=== PATIENT | male | born 1985 | race Two or more races ===

== ENCOUNTER 2024-11-22 12:29 | Emergency (ER) | payer SELFPAY ==
--- NOTE | 2024-11-22 12:32 | ED_ITS ---
<Statement entered by Myla Pimentel DO - 11/22/24 16:02> I was consulted by the [facility], and we discussed the complexity of the problems being addressed. I approved the treatment and management plan for this patient's care in the emergency department, thus performing a substantive portion of the medical decision making. Patient just ate and drink prior to arrival, so his gallbladder is very contracted on CT and ultrasound. He does not have any sonographic Reina sign, labs are reassuring. We discussed the case with general surgery who advised outpatient follow-up. Strict return precautions given Myla Pimentel DO Discharge Plan Disposition Patient Disposition: Home, Self-Care Condition: Good Prescriptions Prescriptions: New omeprazole 40 mg capsule,delayed release(DR/EC) 40 mg PO BID Qty: 30 0RF Referrals Follow up/Referrals: Provider,MD Jace [Primary Care Provider] - See instructions Malvin Sutton MD [Staff Physician] - See instructions Activity Restrictions/Add. Instructions Additional Instructions/Restrictions: I referred you to general surgery. Dr. Cardenas was to see you in his office on Friday. Make sure to mention this to his the staff when you call to make your appointment. If you have any new or worsening signs or symptoms return to the ER as needed. Clinical Impressions Clinical Impression: Abdominal pain, epigastric Instructions Patient Instructions: DI for Acute Abdominal Pain Print Language Print Language: British Discharge ED Provider: Myla Pimentel General Adult HPI <HALEY Novoa - Last Filed: 11/22/24 14:45> General Chief complaint: Abdominal Pain Stated complaint: abd pain Time Seen by Provider: 11/22/24 12:32 History of Present Illness HPI narrative: She presents for evaluation of epigastric abdominal pain. Patient states for the last 5 nights he has been having epigastric abdominal pain that starts around 1 AM. Patient has a normal dayshift job and does not normally eat late. He does not take any [id number] medications does not drink. He states the pain is intense and last for hours. There are no aggravating or relieving factors. Is not better or worse with food intake. He denies chest pain shortness of breath hemoptysis hematochezia melena nausea vomiting or diarrhea. Patient states that he is having normal bowel and bladder function passing gas normally. Related Data Previous Rx's ?Medication ?Instructions ?Recorded omeprazole 40 mg capsule,delayed 40 mg PO BID #30 caps 11/22/24 release Allergies Allergy/AdvReac Type Severity Reaction Status Date / Time No Known Allergies Allergy Unverified 08/26/17 14:19 PFS <HALEY Novoa - Last Filed: 11/22/24 14:45> [facility] Disclaimer: The information contained in this section may have been updated after the patient was seen, as this information can be updated by other users. Medical History (Updated 11/22/24 @ 13:45 by HALEY Novoa) No significant past medical history Surgical History (Updated 11/22/24 @ 13:15 by Ann Garcia, ODILIA) No significant past surgical history Social History Smoking Status: Current every day smoker alcohol intake: never current occupational status: employed Travel in the last 8 weeks: None <HALEY Novoa - Last Filed: 11/22/24 14:45> ROS Obtained: Yes Systems reviewed as appropriate & no additional complaints except as documented Physical Exam <HALEY Novoa - Last Filed: 11/22/24 14:45> General General appearance: alert and in no apparent distress Respiratory Respiratory exam: Present normal lung sounds bilaterally Cardiovascular Cardiovascular exam: Present regular rate Neurological Exam Neurological exam: Present alert and oriented X3 Medical Decision Making <HALEY Novoa - Last Filed: 11/22/24 14:45> Medical Records Medical records reviewed: Yes I reviewed the patient's medical records. Screening: Per USPSTF and CDC recommendations, given the prevalence of disease in our region, it is our hospital?s policy to screen for HIV and viral Hepatitis for all patients aged 18 and over and those with ongoing risk factors. [place] Inquiry Pt receiving controlled substance: No Vital Signs: 11/22/24 12:41 11/22/24 13:30 11/22/24 14:00 Temperature 97.9 F Temperature Source Oral Pulse Rate 57 L 63 Pulse Rate [Left Radial] 67 Respiratory Rate 20 Blood Pressure 111/77 105/74 L Blood Pressure [Right Arm] 128/96 H Blood Pressure Mean 88 Blood Pressure Mean [Right Arm] 106 02 Sat by Pulse Oximetry 97 96 95 Oxygen Delivery Method Room Air Room Air 11/22/24 14:31 Temperature Temperature Source Pulse Rate 58 L Pulse Rate [Left Radial] Respiratory Rate Blood Pressure 118/60 Blood Pressure [Right Arm] Blood Pressure Mean Blood Pressure Mean [Right Arm] 02 Sat by Pulse Oximetry 95 Oxygen Delivery Method Room Air Lab Data Lab results reviewed: Yes I reviewed the patient's lab results. Lab Results 11/22/24 12:35: Urine Color Yellow, Urine Appearance Clear, Urine pH 5.5, Ur Specific [place] >= 1.030, Urine Protein Negative, Urine Glucose (UA) Negative, Urine Ketones Negative, Urine Blood Negative, Urine Nitrate Negative, Urine Bilirubin Negative, Urine Urobilinogen 0.2, Ur Leukocyte Esterase Negative, Urine RBC None, Urine WBC None, Ur Squamous Epith Cells Occasional 11/22/24 12:55: WBC 6.8, RBC 5.22, Hgb 16.0, Hct 46.7, MCV 89.5, MCH 30.7, MCHC 34.3, RDW 12.5, Plt Count 330, MPV 10.5 H, Neut % (Auto) 62.6, Lymph % (Auto) 26.5, Centre % (Auto) 7.2, Eos % (Auto) 2.9, Baso % (Auto) 0.4, Neut # (Auto) 4.3, Lymph # (Auto) 1.8, Centre # (Auto) 0.5, Eos # (Auto) 0.2, Baso # (Auto) 0.0, Sodium 142, Potassium 3.7, Chloride 104, Carbon Dioxide 29, Anion Gap 12.7, BUN 12, Creatinine 0.70, Estimated Creat Clear 127, Estimated GFR 126, Est GFR ( Amer) 152, Glucose 86, Calcium 9.2, Total Bilirubin 0.6, AST 35, ALT 43, Alkaline Phosphatase 78, Troponin I < 0.01, Total Protein 8.4 H, Albumin 5.1 H, Globulin 3.3 H, Albumin/Globulin Ratio 1.5, Lipase 65 11/22/24 12:55 11/22/24 12:55 Orders (Tests/Meds): ED MEDICATIONS Generic Name Dose Route Start Last Admin Trade Name Freq PRN Reason Stop Dose Admin Sodium Chloride 10 ml 11/22/24 13:03 11/22/24 13:04 Sodium Chloride 0.9% 10ml Syr (Rad Only) IV 12/22/24 13:02 10 ml NEEDED PRN Administration Maintain IV Site Discontinued Medications Generic Name Dose Route Start Last Admin Trade Name Sergio PRN Reason Stop Dose Admin Iopamidol 75 ml 11/22/24 13:03 11/22/24 13:04 Iopamidol-370 (76%);100ml Bottle IV 11/22/24 13:04 75 ml ONCE ONE Administration ORDERS Category Date Time Status CT abdomen pelvis w con Stat Cat Scan 11/22/24 12:46 Completed POCUS Point of Care (ER Only) Stat Exams 11/22/24 13:37 Completed CBC w/Auto Diff [Complete Blood Count Auto Diff] Stat Lab 11/22/24 12:55 Completed CMP [Comprehensive Metabolic Panel] Stat Lab 11/22/24 12:55 Completed Lipase Stat Lab 11/22/24 12:55 Completed Trop I [Troponin I] Stat Lab 11/22/24 12:55 Completed Troponin I Q3H Lab 11/22/24 16:00 Ordered Troponin I Q3H Lab 11/22/24 19:00 Ordered UA [Urinalysis and Microscopic] Stat Lab 11/22/24 12:35 Completed Medical Decision Narrative: In summary patient is a 39-year-old male who presents to the emergency department for evaluation of epigastric abdominal pain. Patient is hemodynamically stable upon arrival, afebrile. Physical exam is unremarkable nonfocal including normal breath sounds normal heart sounds no epigastric tenderness currently to palpation no rebound or guarding or rigidity normal bowel sounds.. Differential diagnosis includes atypical presentation of ACS versus gastritis versus esophagitis versus ulcer disease versus choledocholithiasis versus cholecystitis versus pancreatitis etc. Initial workup will be conducted with hematologic labs CT scan abdomen pelvis. Initial interventions were considered including analgesia and GI cocktail however patient is currently asymptomatic thus deferred. Initial workup reviewed by me and patient's hematologic labs are nonactionable and my informal interpretation of his CT imaging actually shows a thickened gallbladder wall with pericholecystic fluid but no obvious evidence of stones prior to radiology read. Please see their final interpretation for official results. Unfortunately patient ate 30 minutes prior to arrival in the emergency department therefore right upper quadrant ultrasound is not indicated at this time however we will order POCUS to see if we can see any stones. POCUS did not reveal any significant obstruction however he does again on POCUS have slightly thickened gallbladder wall with some pericholecystic fluid but no other acute abnormalities can be determined upon repeat evaluation remains asymptomatic and is tolerating oral intake. I then had an interactive discussion with Dr. Sutton of general surgery regarding patient presentation findings and patient management. Dr. Sutton will plan to see the patient in the outpatient setting on Friday in his office with patient started on a PPI. Patient has any new or worsening signs or symptoms he will return to the ER as needed. Given this patient is appropriate for discharge with referral to general surgery for further evaluation of his gallbladder. I have sent a prescription in for PPI to his pharmacy. <Myla Pimentel, DO - Last Filed: 11/22/24 14:34> Vital Signs: 11/22/24 12:41 11/22/24 13:30 11/22/24 14:00 Temperature 97.9 F Temperature Source Oral Pulse Rate 57 L 63 Pulse Rate [Left Radial] 67 Respiratory Rate 20 Blood Pressure 111/77 105/74 L Blood Pressure [Right Arm] 128/96 H Blood Pressure Mean 88 Blood Pressure Mean [Right Arm] 106 02 Sat by Pulse Oximetry 97 96 95 Oxygen Delivery Method Room Air Room Air 11/22/24 14:31 Temperature Temperature Source Pulse Rate 58 L Pulse Rate [Left Radial] Respiratory Rate Blood Pressure 118/60 Blood Pressure [Right Arm] Blood Pressure Mean Blood Pressure Mean [Right Arm] 02 Sat by Pulse Oximetry 95 Oxygen Delivery Method Room Air Lab Data Lab Results 11/22/24 12:35: Urine Color Yellow, Urine Appearance Clear, Urine pH 5.5, Ur Specific [place] >= 1.030, Urine Protein Negative, Urine Glucose (UA) Negative, Urine Ketones Negative, Urine Blood Negative, Urine Nitrate Negative, Urine Bilirubin Negative, Urine Urobilinogen 0.2, Ur Leukocyte Esterase Negative, Urine RBC None, Urine WBC None, Ur Squamous Epith Cells Occasional 11/22/24 12:55: WBC 6.8, RBC 5.22, Hgb 16.0, Hct 46.7, MCV 89.5, MCH 30.7, MCHC 34.3, RDW 12.5, Plt Count 330, MPV 10.5 H, Neut % (Auto) 62.6, Lymph % (Auto) 26.5, Centre % (Auto) 7.2, Eos % (Auto) 2.9, Baso % (Auto) 0.4, Neut # (Auto) 4.3, Lymph # (Auto) 1.8, Centre # (Auto) 0.5, Eos # (Auto) 0.2, Baso # (Auto) 0.0, Sodium 142, Potassium 3.7, Chloride 104, Carbon Dioxide 29, Anion Gap 12.7, BUN 12, Creatinine 0.70, Estimated Creat Clear 127, Estimated GFR 126, Est GFR ( Amer) 152, Glucose 86, Calcium 9.2, Total Bilirubin 0.6, AST 35, ALT 43, Alkaline Phosphatase 78, Troponin I < 0.01, Total Protein 8.4 H, Albumin 5.1 H, Globulin 3.3 H, Albumin/Globulin Ratio 1.5, Lipase 65 Orders (Tests/Meds): ED MEDICATIONS Generic Name Dose Route Start Last Admin Trade Name Freq PRN Reason Stop Dose Admin Sodium Chloride 10 ml 11/22/24 13:03 11/22/24 13:04 Sodium Chloride 0.9% 10ml Syr (Rad Only) IV 12/22/24 13:02 10 ml NEEDED PRN Administration Maintain IV Site Discontinued Medications Generic Name Dose Route Start Last Admin Trade Name Freq PRN Reason Stop Dose Admin Iopamidol 75 ml 11/22/24 13:03 11/22/24 13:04 Iopamidol-370 (76%);100ml Bottle IV 11/22/24 13:04 75 ml ONCE ONE Administration ORDERS Category Date Time Status CT abdomen pelvis w con Stat Cat Scan 11/22/24 12:46 Completed POCUS Point of Care (ER Only) Stat Exams 11/22/24 13:37 Completed CBC w/Auto Diff [Complete Blood Count Auto Diff] Stat Lab 11/22/24 12:55 Completed CMP [Comprehensive Metabolic Panel] Stat Lab 11/22/24 12:55 Completed Lipase Stat Lab 11/22/24 12:55 Completed Trop I [Troponin I] Stat Lab 11/22/24 12:55 Completed Troponin I Q3H Lab 11/22/24 16:00 Ordered Troponin I Q3H Lab 11/22/24 19:00 Ordered UA [Urinalysis and Microscopic] Stat Lab 11/22/24 12:35 Completed Procedures <Myla Pimentel, DO - Last Filed: 11/22/24 14:34> Limited Ultrasound Findings:: Limited RUQ ultrasound Indication: abdominal pain Identified structures: -Gallbladder -Gallbladder wall -Liver Findings: Sonographic Reina sign: absent Gallstones: absent Sludge: present Pericholecystic fluid: present Gallbladder width (cm): normal Gallbladder length (cm): normal Impression: -gallbladder wall thickening and pericholecystic fluid with biliary sludge; had eaten just prior to arrival so ddx includes gallbladder contraction vs cholecystitis. Unable to visualize CBD Images were saved to permanent archive The study was technically adequate CPT 41956-48 This study was performed by me, and I personally interpreted all images/videos. Based on my clinical judgement, these images were [adequate/inadequate] and did not necessitate further imaging. Critical Care <HALEY Novoa - Last Filed: 11/22/24 14:45> Critical Care Time Critical Care Time: No
[2024-11-22 12:41] VITALS: BP 128/96; PULSE 67; RESP 20; TEMP 36.6; O2SAT 97; BMI 24.0
[2024-11-22 12:44] LABS: Microscopic, Urine URINE MICROSCOPIC (MICROSCOPIC)
--- NOTE | 2024-11-22 12:46 | CT_ITS ---
FINAL REPORT TECHNIQUE: Axial CT images of the abdomen and pelvis were obtained after the administration of IV contrast. Coronal and sagittal reformatted images were also obtained and reviewed. This study was performed with techniques to keep radiation doses as low as reasonably achievable (ALARA). Individualized dose reduction techniques using automated exposure control or adjustment of mA and/or kV according to the patient's size were employed. CLINICAL HISTORY: Epigastric abdominal pain COMPARISON: None FINDINGS: CT ABDOMEN & PELVIS W/CONTRAST Abdomen: Lung bases are clear. The gallbladder is contracted. Liver has an unremarkable CT appearance. The spleen, pancreas and adrenal glands are unremarkable. Left renal cysts are identified. There is a tiny nonobstructing lower pole left renal stone. No bowel obstruction or fluid collection is seen. Pelvis: The appendix is unremarkable. Pelvic bowel loops are unremarkable. No fluid collection or adenopathy is seen. IMPRESSION: No acute findings. Reviewed, Interpreted and Dictated by Sarah Ugarte MD Transcribed by Brenda Adorno Authenticated and [facility]
[2024-11-22 12:56] LABS: Appearance,Urine Clear (Clear); Color,Urine Yellow (Yellow); PH,Urine 5.5 (5.0-8.5)
[2024-11-22 12:57] LABS: Bilirubin,Urine Negative (Negative); Blood, Urine Negative (Negative); Glucose,Urine (UA) Negative (Negative); Ketones,Urine Negative (Negative); Leukocyte Esterase,Urine Negative (Negative); Nitrate,Urine Negative (Negative); Protein,Urine Negative (Negative); Squamous Epithelial Cell,Urine Occasional #/hpf (0-5); Urobilinogen,Urine 0.2 EU/dl (0.2)
[2024-11-22 12:58] LABS: Specific Gravity, Urine >= 1.030 (1.005-1.030)
--- NOTE | 2024-11-22 13:00 | PC.NURSE ---
walked to ct scan with trade manager
[2024-11-22] MEDS: IOPAMIDOL-370 (76%);100ML BOTTLE 75 ML IV (13:04)
[2024-11-22] MEDS: SODIUM CHLORIDE 0.9% 10ML SYR (RAD ONLY) 10 ML IV (13:04)
[2024-11-22 13:08] LABS: Basophils % 0.4 % (0.1-2.0); Eosinophils # 0.2 K/mm3 (0.0-0.4); Eosinophils % 2.9 % (0.1-12.0); Hematocrit 46.7 % (42.0-52.0); Lymphocytes # 1.8 K/mm3 (0.7-4.5); Lymphocytes % 26.5 % (10-50); Mean Corpuscular HGB Conc 34.3 g/dL (31.8-35.4); Mean Corpuscular Hemoglobin 30.7 pg (27.0-31.2); Mean Corpuscular Volume 89.5 fl (80-94); Mean Platelet Volume 10.5 fl (7.4-10.4); Monocytes # 0.5 K/mm3 (0.1-1.0); Monocytes % 7.2 % (1.7-9.3); Neutrophils # 4.3 K/mm3 (1.8-7.8); Neutrophils % 62.6 % (37.0-80.0); Platelet Count 330 K/mm3 (142-424); Red Blood Count 5.22 M/mm3 (4.60-6.20); Red Cell Distribution Width 12.5 % (11.5-17.5); White Blood Count 6.8 K/mm3 (4.8-10.8)
[2024-11-22 13:22] LABS: Albumin Level 5.1 g/dl (3.5-5.0); Chloride 104 mmol/L (98-107); Potassium 3.7 mmoL/L (3.5-5.1); Sodium 142 mmol/L (136-145)
[2024-11-22 13:24] LABS: Blood Urea Nitrogen 12 mg/dl (9-20); Creatinine Clearance Estimated 127 mL/min (50-200); Estimated Glomerular Filt Rate 126 ml/min (>60); GFR (African American) 152 ML/MIN (>60)
[2024-11-22 13:25] LABS: Alanine Aminotransferase 43 U/L (12-78); Albumin/Globulin Ratio 1.5 (1.1-1.8); Alkaline Phosphatase 78 U/L (38-126); Anion Gap 12.7 mEq/L (5-15); Aspartate Amino Transferase 35 U/L (17-59); Bilirubin,Total 0.6 mg/dl (0.2-1.3); Calcium 9.2 mg/dl (8.4-10.2); Carbon Dioxide 29 mmol/L (22.0-30.0); Globulin 3.3 g/dL (1.3-3.2); Glucose 86 mg/dl (74-100); Lipase 65 U/L (23-300); Total Protein,Serum 8.4 g/dl (6.3-8.2)
[2024-11-22 13:30] VITALS: BP 111/77; PULSE 57; O2SAT 96
[2024-11-22 13:37] LABS: Troponin I < 0.01 ng/ml (0.00-0.034)
[2024-11-22 14:00] VITALS: BP 105/74; PULSE 63; O2SAT 95
[2024-11-22 14:31] VITALS: BP 118/60; PULSE 58; O2SAT 95
[2024-11-22 15:00] VITALS: BP 118/60; PULSE 62; RESP 18; TEMP 36.7; O2SAT 98
== END 2024-11-22 15:00 | disposition home or self-care (01) ==
PROVIDERS: Physician Assistant; Emergency Provider Emergency Medicine
DX: R10.13 Epigastric pain (principal); Z72.0 Tobacco use
CPT/HCPCS: 74177; 80053; 81001; 83690; 84484; 85025; 99285; Q9967

== ENCOUNTER 2024-11-28 19:13 | Observation (INO) | payer SELFPAY ==
[2024-11-28 19:18] VITALS: BP 143/92; PULSE 92; RESP 100; TEMP 36.7; O2SAT 100; BMI 24.0
--- NOTE | 2024-11-28 19:18 | HMH.EDGENADL ---
Discharge Plan Disposition Patient Disposition: Admitted Condition: Good Clinical Impressions Clinical Impression: Cholelithiasis Qualifiers: Cholelithiasis location: gallbladder Cholecystitis presence: without cholecystitis Discharge ED Provider: Matthew Solares General Adult HPI <HALEY Novoa - Last Filed: 11/28/24 20:29> General Chief complaint: Abdominal Pain Stated complaint: abdominal pain ,nausea Time Seen by Provider: 11/28/24 19:18 History of Present Illness HPI narrative: Patient presents for evaluation of epigastric and right upper quadrant abdominal pain. Patient was seen and evaluated on 11/22/2024 and found to have symptomatic cholelithiasis. He was ultimately able to be discharged and followed up with general surgery as an outpatient however patient has no insurance and was requested that patient make financial arrangements prior to an elective surgery. Unfortunately patient has not been able to do that and has now come back symptomatic again. He reports that he has intense pain has not gone away in the epigastrium and right upper quadrant. He reports nausea but no vomiting diarrhea fever chills hemoptysis hematochezia melena hematemesis. Related Data Previous Rx's ?Medication ?Instructions ?Recorded omeprazole 40 mg capsule,delayed 40 mg PO BID #30 caps 11/22/24 release Allergies Allergy/AdvReac Type Severity Reaction Status Date / Time No Known Allergies Allergy Unverified 11/24/24 09:00 [facility] <HALEY Novoa - Last Filed: 11/28/24 20:29> [facility] Disclaimer: The information contained in this section may have been updated after the patient was seen, as this information can be updated by other users. Medical History No significant past medical history Surgical History No significant past surgical history Social History Smoking Status: Never smoker alcohol intake: never current occupational status: employed Travel in the last 8 weeks: None Have you lived/traveled outside US in past 30 days?: No Contact w/someone who lives/traveled outside US past 30 days?: No Exposure to someone with infectious disease in past 14 days?: No Do you have a fever (greater than 100.4 F or 38 C)?: No Have you tested positive for COVID-19: No Exposed to someone with COVID-19 in past 14 days?: No Do you have a sore throat?: No Do you have a cough?: No Do you have any weakness?: No Do you have any diarrhea?: No Are you experiencing any unusual bleeding?: No Do you have any muscle aches/pain?: No Do you have any abdominal pain?: Yes Are you experiencing loss of taste or smell?: No <HALEY Novoa - Last Filed: 11/28/24 20:29> ROS Obtained: Yes Systems reviewed as appropriate & no additional complaints except as documented Physical Exam <HALEY Novoa - Last Filed: 11/28/24 20:29> General General appearance: alert and in no apparent distress Respiratory Respiratory exam: Present normal lung sounds bilaterally Cardiovascular Cardiovascular exam: Present regular rate and +S2 Neurological Exam Neurological exam: Present alert and oriented X3 Medical Decision Making <HALEY Novoa - Last Filed: 11/28/24 20:29> Medical Records Medical records reviewed: Yes I reviewed the patient's medical records. Screening: Per USPSTF and CDC recommendations, given the prevalence of disease in our region, it is our hospital?s policy to screen for HIV and viral Hepatitis for all patients aged 18 and over and those with ongoing risk factors. [place] Inquiry Pt receiving controlled substance: No Vital Signs: 11/28/24 19:18 11/28/24 20:28 Temperature 98.1 F 98.1 F Temperature Source Oral Pulse Rate 78 Pulse Rate [Right] 92 H Respiratory Rate 100 H 20 Blood Pressure 143/78 H Blood Pressure [Right Arm] 143/92 H Blood Pressure Mean [Right Arm] 109 Blood Pressure Source [Right Arm] Automatic Cuff Blood Pressure Position [Right Arm] Sitting 02 Sat by Pulse Oximetry 100 Oxygen Delivery Method Room Air Room Air Lab Data Lab results reviewed: Yes I reviewed the patient's lab results. Lab Results 11/28/24 19:36: WBC 10.2, RBC 5.45, Hgb 16.8, Hct 48.4, MCV 88.8, MCH 30.8, MCHC 34.7, RDW 12.2, Plt Count 333, MPV 10.5 H, Neut % (Auto) 63.8, Lymph % (Auto) 26.0, [place] % (Auto) 7.5, Eos % (Auto) 1.9, Baso % (Auto) 0.4, Neut # (Auto) 6.5, Lymph # (Auto) 2.7, [place] # (Auto) 0.8, Eos # (Auto) 0.2, Baso # (Auto) 0.0, Sodium 139, Potassium 4.1, Chloride 103, Carbon Dioxide 27, Anion Gap 13.1, BUN 14, Creatinine 0.70, Estimated Creat Clear 127, Estimated GFR 126, Est GFR ( Amer) 152, Glucose 91, Calcium 9.3, Total Bilirubin 0.7, AST 49, ALT 55, Alkaline Phosphatase 83, Total Protein 9.0 H, Albumin 5.4 H, Globulin 3.6 H, Albumin/Globulin Ratio 1.5, Lipase 94, Procalcitonin 0.033 11/28/24 19:55: Lactate 1.4 11/28/24 19:36 11/28/24 19:36 Orders (Tests/Meds): ED MEDICATIONS Generic Name Dose Route Start Last Admin Trade Name Freq PRN Reason Stop Dose Admin Famotidine 20 mg 11/28/24 20:25 Famotidine 20mg/2ml Vial IV 12/28/24 20:24 HS MELE Hydromorphone HCl 0.5 mg 11/28/24 20:16 Hydromorphone 2mg/Ml Syringe IV 12/28/24 20:15 Q4HP PRN Severe Pain (7-10) Sodium Chloride 1,000 mls @ 100 mls/hr 11/28/24 20:30 Sod Chlor 0.9% 1000ml Bag IV 12/28/24 20:29 .Q10H MELE Ketorolac Tromethamine 15 mg 11/28/24 20:16 Ketorolac 30mg/Ml Vial IV 12/03/24 20:15 Q4HP PRN Moderate Pain (4-6) Ondansetron HCl 4 mg 11/28/24 20:16 Ondansetron 4mg/2ml Vial IV 12/28/24 20:15 Q8HP PRN Nausea Sodium Chloride 8 ml 11/28/24 20:20 Sodium Chloride 0.9% 10ml Vial IV 12/28/24 20:19 NEEDED PRN dilute pepcid Discontinued Medications Generic Name Dose Route Start Last Admin Trade Name Sergio PRN Reason Stop Dose Admin Acetaminophen 1,000 mg 11/28/24 19:30 11/28/24 19:43 Acetaminophen 1,000mg/100ml Vial IV 11/28/24 19:31 1,000 mg ONCE ONE Administration Belladonna Alkaloids 60 ml 11/28/24 19:49 11/28/24 19:56 Belladonna Alkaloids 60 Ml Ml PO 11/28/24 19:50 60 ml ONCE ONE Administration Hydromorphone HCl 0.5 mg 11/28/24 19:50 11/28/24 19:56 Hydromorphone 2mg/Ml Syringe IV 11/28/24 19:51 0.5 mg ONCE ONE Administration Sodium Chloride 1,000 mls @ 999 mls/hr 11/28/24 19:30 11/28/24 19:43 Sod Chlor 0.9% 1000ml Bag IV 11/28/24 20:30 999 mls/hr .Q1H1M ONE Administration Ketorolac Tromethamine 15 mg 11/28/24 19:30 11/28/24 19:43 Ketorolac 30mg/Ml Vial IV 11/28/24 19:31 15 mg ONCE ONE Administration Ondansetron HCl 4 mg 11/28/24 19:30 11/28/24 19:43 Ondansetron 4mg/2ml Vial IV 11/28/24 19:31 4 mg ONCE ONE Administration ORDERS Category Date Time Status POCUS Point of Care (ER Only) Stat Exams 11/28/24 19:33 Completed CBC w/Auto Diff [Complete Blood Count Auto Diff] Stat Lab 11/28/24 19:36 Completed CMP [Comprehensive Metabolic Panel] Stat Lab 11/28/24 19:36 Completed Complete Blood Count Auto Diff AMLAB Lab 11/29/24 06:00 Ordered Comprehensive Metabolic Panel AMLAB Lab 11/29/24 06:00 Ordered Lactic Acid Stat Lab 11/28/24 19:55 Completed Lipase Stat Lab 11/28/24 19:36 Completed Magnesium AMLAB Lab 11/29/24 06:00 Ordered Procalcitonin Stat Lab 11/28/24 19:36 Completed Medical Decision Narrative: In summary patient is a 9-year-old male who presents to the emergency department for evaluation of recurrent epigastric and right upper quadrant abdominal pain. Patient is normotensive with a blood pressure 143/92 heart rate 92 respiratory rate 18 satting at 100% on room air upon arrival, afebrile at 90.1. Physical exam is remarkable for tenderness to palpation in the epigastrium and right upper quadrant without rebound or guarding or rigidity. Bowel sounds normal active.. Differential diagnosis includes cholelithiasis versus cholecystitis versus pancreatitis versus gastrointestinal cause such as ulcer [place]. Initial workup will be conducted with hematologic labs and POCUS. Initial interventions include crystalloid bolus Toradol Tylenol GI cocktail and Dilaudid. Initial workup reviewed by me and his hematologic labs are nonactionable including a normal white count with no shift no elevation of his liver enzymes or transaminitis bilirubin lipase is normal. POCUS reveals a large stone in the gallbladder wedged in the neck with no cholecystic fluid or gallbladder wall thickening. Upon repeat evaluation patient reported significant improvement after initial intervention. Given this patient is is appropriate for admission and I had interactive discussion with hospital medicine regarding patient MCCLAIN presentation and management and he will be admitted for further evaluation and care. <Matthew Solares MD - Last Filed: 11/28/24 20:46> Vital Signs: 11/28/24 19:18 11/28/24 20:28 Temperature 98.1 F 98.1 F Temperature Source Oral Pulse Rate 78 Pulse Rate [Right] 92 H Respiratory Rate 100 H 20 Blood Pressure 143/78 H Blood Pressure [Right Arm] 143/92 H Blood Pressure Mean [Right Arm] 109 Blood Pressure Source [Right Arm] Automatic Cuff Blood Pressure Position [Right Arm] Sitting 02 Sat by Pulse Oximetry 100 Oxygen Delivery Method Room Air Room Air Lab Data Lab Results 11/28/24 19:36: WBC 10.2, RBC 5.45, Hgb 16.8, Hct 48.4, MCV 88.8, MCH 30.8, MCHC 34.7, RDW 12.2, Plt Count 333, MPV 10.5 H, Neut % (Auto) 63.8, Lymph % (Auto) 26.0, [place] % (Auto) 7.5, Eos % (Auto) 1.9, Baso % (Auto) 0.4, Neut # (Auto) 6.5, Lymph # (Auto) 2.7, [place] # (Auto) 0.8, Eos # (Auto) 0.2, Baso # (Auto) 0.0, Sodium 139, Potassium 4.1, Chloride 103, Carbon Dioxide 27, Anion Gap 13.1, BUN 14, Creatinine 0.70, Estimated Creat Clear 127, Estimated GFR 126, Est GFR ( Amer) 152, Glucose 91, Calcium 9.3, Total Bilirubin 0.7, AST 49, ALT 55, Alkaline Phosphatase 83, Total Protein 9.0 H, Albumin 5.4 H, Globulin 3.6 H, Albumin/Globulin Ratio 1.5, Lipase 94, Procalcitonin 0.033 11/28/24 19:55: Lactate 1.4 Orders (Tests/Meds): ED MEDICATIONS Generic Name Dose Route Start Last Admin Trade Name Freq PRN Reason Stop Dose Admin Famotidine 20 mg 11/28/24 20:25 Famotidine 20mg/2ml Vial IV 12/28/24 20:24 HS MELE Hydromorphone HCl 0.5 mg 11/28/24 20:16 Hydromorphone 2mg/Ml Syringe IV 12/28/24 20:15 Q4HP PRN Severe Pain (7-10) Sodium Chloride 1,000 mls @ 100 mls/hr 11/28/24 20:30 Sod Chlor 0.9% 1000ml Bag IV 12/28/24 20:29 .Q10H MELE Ketorolac Tromethamine 15 mg 11/28/24 20:16 Ketorolac 30mg/Ml Vial IV 12/03/24 20:15 Q4HP PRN Moderate Pain (4-6) Ondansetron HCl 4 mg 11/28/24 20:16 Ondansetron 4mg/2ml Vial IV 12/28/24 20:15 Q8HP PRN Nausea Sodium Chloride 8 ml 11/28/24 20:20 Sodium Chloride 0.9% 10ml Vial IV 12/28/24 20:19 NEEDED PRN dilute pepcid Discontinued Medications Generic Name Dose Route Start Last Admin Trade Name Freq PRN Reason Stop Dose Admin Acetaminophen 1,000 mg 11/28/24 19:30 11/28/24 19:43 Acetaminophen 1,000mg/100ml Vial IV 11/28/24 19:31 1,000 mg ONCE ONE Administration Belladonna Alkaloids 60 ml 11/28/24 19:49 11/28/24 19:56 Belladonna Alkaloids 60 Ml Ml PO 11/28/24 19:50 60 ml ONCE ONE Administration Hydromorphone HCl 0.5 mg 11/28/24 19:50 11/28/24 19:56 Hydromorphone 2mg/Ml Syringe IV 11/28/24 19:51 0.5 mg ONCE ONE Administration Sodium Chloride 1,000 mls @ 999 mls/hr 11/28/24 19:30 11/28/24 19:43 Sod Chlor 0.9% 1000ml Bag IV 11/28/24 20:30 999 mls/hr .Q1H1M ONE Administration Ketorolac Tromethamine 15 mg 11/28/24 19:30 11/28/24 19:43 Ketorolac 30mg/Ml Vial IV 11/28/24 19:31 15 mg ONCE ONE Administration Ondansetron HCl 4 mg 11/28/24 19:30 11/28/24 19:43 Ondansetron 4mg/2ml Vial IV 11/28/24 19:31 4 mg ONCE ONE Administration ORDERS Category Date Time Status POCUS Point of Care (ER Only) Stat Exams 11/28/24 19:33 Completed CBC w/Auto Diff [Complete Blood Count Auto Diff] Stat Lab 11/28/24 19:36 Completed CMP [Comprehensive Metabolic Panel] Stat Lab 11/28/24 19:36 Completed Complete Blood Count Auto Diff AMLAB Lab 11/29/24 06:00 Ordered Comprehensive Metabolic Panel AMLAB Lab 11/29/24 06:00 Ordered Lactic Acid Stat Lab 11/28/24 19:55 Completed Lipase Stat Lab 11/28/24 19:36 Completed Magnesium AMLAB Lab 11/29/24 06:00 Ordered Procalcitonin Stat Lab 11/28/24 19:36 Completed Medical Decision Narrative: In summary patient is a 9-year-old male who presents to the emergency department for evaluation of recurrent epigastric and right upper quadrant abdominal pain. Patient is normotensive with a blood pressure 143/92 heart rate 92 respiratory rate 18 satting at 100% on room air upon arrival, afebrile at 90.1. Physical exam is remarkable for tenderness to palpation in the epigastrium and right upper quadrant without rebound or guarding or rigidity. Bowel sounds normal active.. Differential diagnosis includes cholelithiasis versus cholecystitis versus pancreatitis versus gastrointestinal cause such as ulcer [place]. Initial workup will be conducted with hematologic labs and POCUS. Initial interventions include crystalloid bolus Toradol Tylenol GI cocktail and Dilaudid. Initial workup reviewed by me and his hematologic labs are nonactionable including a normal white count with no shift no elevation of his liver enzymes or transaminitis bilirubin lipase is normal. POCUS reveals a large stone in the gallbladder wedged in the neck with no cholecystic fluid or gallbladder wall thickening. Upon repeat evaluation patient reported significant improvement after initial intervention. Given this patient is is appropriate for admission and I had interactive discussion with hospital medicine regarding patient MCCLAIN presentation and management and he will be admitted for further evaluation and care. I was consulted by the MO[place]ST[place], and we discussed the complexity of the problems being addressed. I approved the treatment and management plan for this patient's care in the Emergency Department, thus performing a substantive portion of the medical decision making. I also independently examined and interviewed patient. Consistent with acute cholecystitis, especially given right upper quadrant findings on ultrasound. Because patient high risk for clinical decompensation, deemed appropriate for inpatient admission. Results were relayed to patient who voiced understanding and patient was agreeable to inpatient admission and management. Patient was admitted to the hospital for further definitive management. Matthew Solares MD Procedures <Matthew Solares MD - Last Filed: 11/28/24 20:46> Limited Ultrasound Indication:: Limited RUQ ultrasound Indication: Right upper quadrant pain, vomiting Identified structures: -Gallbladder -Gallbladder wall -Common bile duct -Liver Findings: Sonographic Reina sign: Present Gallstones: Present, 2 cm Sludge: Present Pericholecystic fluid: Absent Maximal GB wall thickness (mm) (normal is </= 3mm): Normal Common bile duct width (mm) (normal is </= 6mm): Normal Gallbladder width (cm) (normal is < 4cm): Normal Gallbladder length (cm) (normal is < 10cm): Normal Impression: Gallbladder full of sludge with 2 cm stone. Sonographic Reina sign present. Measurements normal, no pericholecystic fluid. Consistent with acute cholecystitis Images were saved to permanent archive The study was technically adequate CPT 05235-74 This study was performed by me, and I personally interpreted all images/videos. Based on my clinical judgement, these images were adequate and did not necessitate further imaging. Critical Care <HALEY Novoa - Last Filed: 11/28/24 20:29> Critical Care Time Critical Care Time: No
[2024-11-28 19:43] LABS: Basophils % 0.4 % (0.1-2.0); Eosinophils # 0.2 K/mm3 (0.0-0.4); Eosinophils % 1.9 % (0.1-12.0); Hematocrit 48.4 % (42.0-52.0); Hemoglobin 16.8 g/dL (14.1-18.0); Lymphocytes # 2.7 K/mm3 (0.7-4.5); Mean Corpuscular HGB Conc 34.7 g/dL (31.8-35.4); Mean Corpuscular Hemoglobin 30.8 pg (27.0-31.2); Mean Corpuscular Volume 88.8 fl (80-94); Mean Platelet Volume 10.5 fl (7.4-10.4); Monocytes # 0.8 K/mm3 (0.1-1.0); Monocytes % 7.5 % (1.7-9.3); Neutrophils # 6.5 K/mm3 (1.8-7.8); Neutrophils % 63.8 % (37.0-80.0); Platelet Count 333 K/mm3 (142-424); Red Blood Count 5.45 M/mm3 (4.60-6.20); Red Cell Distribution Width 12.2 % (11.5-17.5); White Blood Count 10.2 K/mm3 (4.8-10.8)
[2024-11-28] MEDS: KETOROLAC 30MG/ML VIAL 15 MG IV ×2 (19:43→21:43)
[2024-11-28] MEDS: ACETAMINOPHEN 1,000MG/100ML VIAL 1000 MG IV (19:43)
[2024-11-28] MEDS: 0.9 % SODIUM CHLORIDE 1000ML 1,000 ML 999 ML IV (19:43)
[2024-11-28] MEDS: ONDANSETRON 4MG/2ML VIAL 4 MG IV (19:43)
[2024-11-28 19:54] LABS: Albumin Level 5.4 g/dl (3.5-5.0); Chloride 103 mmol/L (98-107); Potassium 4.1 mmoL/L (3.5-5.1); Sodium 139 mmol/L (136-145)
[2024-11-28 19:56] LABS: Blood Urea Nitrogen 14 mg/dl (9-20); Creatinine Clearance Estimated 127 mL/min (50-200); Estimated Glomerular Filt Rate 126 ml/min (>60); GFR (African American) 152 ML/MIN (>60)
[2024-11-28] MEDS: BELLADONNA ALKALOIDS 60 ML ML PO (19:56)
[2024-11-28] MEDS: HYDROMORPHONE 2MG/ML SYRINGE 0.5 MG IV ×2 (19:56→21:44)
[2024-11-28 19:57] LABS: Alanine Aminotransferase 55 U/L (12-78); Albumin/Globulin Ratio 1.5 (1.1-1.8); Alkaline Phosphatase 83 U/L (38-126); Anion Gap 13.1 mEq/L (5-15); Aspartate Amino Transferase 49 U/L (17-59); Bilirubin,Total 0.7 mg/dl (0.2-1.3); Calcium 9.3 mg/dl (8.4-10.2); Carbon Dioxide 27 mmol/L (22.0-30.0); Globulin 3.6 g/dL (1.3-3.2); Glucose 91 mg/dl (74-100); Lipase 94 U/L (23-300)
[2024-11-28 20:09] LABS: Lactic Acid 1.4 mmol/L (0.7-2.1)
--- NOTE | 2024-11-28 20:15 | PC.NURSE ---
at bedside to perform POCUS
[2024-11-28 20:20] VITALS: BP 133/80; PULSE 57; RESP 16; TEMP 36.6; O2SAT 96; BMI 25.7
[2024-11-28 20:21] LABS: Procalcitonin 0.033 ng/mL (0.0-2.0)
[2024-11-28 20:28] VITALS: BP 143/78; PULSE 78; RESP 20; TEMP 36.7; O2SAT 100
[2024-11-28] MEDS: 0.9 % SODIUM CHLORIDE 1000ML 1,000 ML 100 ML IV (20:30)
--- NOTE | 2024-11-28 20:43 | P.HP_ITS ---
<Statement entered by Krishna Gamboa MD - 11/29/24 19:28> Rounded on patient after nurse practitioner. Personally examined and interviewed patient. Agree with exam findings and care plan as documented. Eval [id number] ultrasound in the ED shows concern for gallbladder neck stone with distention and pericholecystic fluid. Surgery consulted. Patient NPO. Addressing pain with IV morphine. Monitor for toxicity. White count normal with normal liver enzymes on presentation. Repeat CBC, CMP, magnesium ordered for the morning. N.p.o. pending possible surgery. Formal right upper quadrant ultrasound pending. Review of CT from last week shows gallbladder disease but no yisel biliary duct dilatation. History of Present Illness *Admission Date: 11/28/24 *Reason for visit:: Cholelithiasis with gallstone in the neck of the gallbladder *History of present illness: Patient is a 39-year-old male. His [place] is fairly good. He does have a significant others who is fluent in both languages. Patient was seen earlier this week in the ER for same and was then evaluated in doctor's office and needed to find financing for an elective surgery.. Patient has since gotten worse come back to the emergency room. And per emergency room evaluation labs still remain good patient is in pain. Per their workup revealed a large stone in the gallbladder wedged in the neck.. [place] there was no gallbladder wall thickening or cholecystic fluid.. Patient's pain has been controlled with medication. Since this is an uncomplicated case surgery is not notified at night. But we will put in general surgery consult for the a.m. with anticipation of chol ecystectomy. Rest of patient's exam physically is normal he is alert oriented and in good spirits. Also noted that he told me he does not smoke [facility] Disclaimer: The information contained in this section may have been updated after the patient was seen, as this information can be updated by other users. Medical History No significant past medical history Surgical History No significant past surgical history Social History Smoking Status: Never smoker alcohol intake: never current occupational status: employed Travel in the last 8 weeks: None Have you lived/traveled outside US in past 30 days?: No Contact w/someone who lives/traveled outside US past 30 days?: No Exposure to someone with infectious disease in past 14 days?: No Do you have a fever (greater than 100.4 F or 38 C)?: No Have you tested positive for COVID-19: No Exposed to someone with COVID-19 in past 14 days?: No Do you have a sore throat?: No Do you have a cough?: No Do you have any weakness?: No Do you have any diarrhea?: No Are you experiencing any unusual bleeding?: No Do you have any muscle aches/pain?: No Do you have any abdominal pain?: Yes Are you experiencing loss of taste or smell?: No Other Medical History Have you received the Flu Vaccine for this season: No Have you received the Pneumonia Vaccine: No Review of Systems Review of Systems Review of systems:: pertinent systems reviewed and negative unless documented be low Constitutional Constitutional: Reports as per HPI Eyes Eyes: Reports as per HPI ENT Ears, Nose, Mouth, and Throat: Reports as per HPI *Cardiovascular Cardiovascular: Reports as per HPI *Respiratory Respiratory: Reports as per HPI *Gastrointestinal Gastrointestinal: Reports abdominal pain *Genitourinary Genitourinary: Reports as per HPI *Musculoskeletal Musculoskeletal: Reports as per HPI Integumentary/Breasts Skin/Breast: Reports as per HPI *Neurologic Neurologic: Reports as per HPI Psychiatric Psychiatric: Reports as per HPI Endocrine Endocrine: Reports as per HPI Hematologic/Lymphatic Hematologic/Lymphatic: Reports as per HPI Allergic/Immunologic Allergic/Immunologic: Reports as per HPI Meds Home Medications and Allergies Home Medications ?Medication ?Instructions ?Recorded ?Confirmed ?Type omeprazole 40 mg capsule,delayed 40 mg PO BID #30 caps 11/22/24 11/24/24 Rx release New Prescriptions to Start Prescriptions: Allergies Allergy/AdvReac Type Severity Reaction Status Date / Time No Known Allergies Allergy Unverified 11/24/24 09:00 Exam Data for Last 24 hours Vital signs and Labs for Last 24 Hours: Temp Pulse Resp BP Pulse Ox O2 Del Method 98.1 F 78 20 143/78 H 100 Room Air 11/28/24 20:28 11/28/24 20:28 11/28/24 20:28 11/28/24 20:28 11/28/24 19:18 11/28/24 20:28 Laboratory Results - last 24 hr 11/28/24 19:36: WBC 10.2, RBC 5.45, Hgb 16.8, Hct 48.4, MCV 88.8, MCH 30.8, MCHC 34.7, RDW 12.2, Plt Count 333, MPV 10.5 H, Neut % (Auto) 63.8, Lymph % (Auto) 26.0, [place] % (Auto) 7.5, Eos % (Auto) 1.9, Baso % (Auto) 0.4, Neut # (Auto) 6.5, Lymph # (Auto) 2.7, [place] # (Auto) 0.8, Eos # (Auto) 0.2, Baso # (Auto) 0.0, Sodium 139, Potassium 4.1, Chloride 103, Carbon Dioxide 27, Anion Gap 13.1, BUN 14, Creatinine 0.70, Estimated Creat Clear 127, Estimated GFR 126, Est GFR ( Amer) 152, Glucose 91, Calcium 9.3, Total Bilirubin 0.7, AST 49, ALT 55, Alkaline Phosphatase 83, Total Protein 9.0 H, Albumin 5.4 H, Globulin 3.6 H, Albumin/Globulin Ratio 1.5, Lipase 94, Procalcitonin 0.033 11/28/24 19:55: Lactate 1.4 I & O for Last 24 hours: Intake & Output 11/26/24 11/27/24 11/28/24 11/29/24 05:59 05:59 05:59 05:59 Weight 140 lb Narrative: Patient had a CT scan of the abdomen on which showed sludge throughout the gallbladder and some wall thickening. Today the patient had ultrasound done in the emergency room which showed a gallstone wedged in the neck of the gallbladder. Constitutional Constitutional: mild distress and thin Comments: Pain has been treated with medication before I saw the patient *Routine HEENT Exam Head: Present normocephalic, atraumatic and cushingoid faces Eye: Present PERRL and normal accommodation ENT: Present mucous membranes moist, oropharynx clear and external ear normal *Routine Neck Exam Neck: Present supple and full ROM *Routine Respiratory Exam Respiratory: Present CTA bilaterally, normal respiratory effort, able to speak in complete sentences and symmetric chest movement *Routine Cardiovascular Exam Cardiovascular: Present Normal S1 and Normal S2 *Routine Abdominal Exam Abdominal: Present soft and tenderness Comments: Due to the patient's diagnosis did not palpate more than a lightly to the upper right quadrant but noted tenderness when pressing *Routine Rectal Exam Rectal:: deferred *Routine Genitalia Exam Genitalia:: deferred *Routine Extremities Exam Extremities: Present full ROM *Routine Skin Exam Skin: Present intact, dry, warm and normal turgor *Routine Neurological Exam Neurological: Present alert, oriented X3, CN II-XII intact and normal speech Routine Psychiatric Exam Psychiatric: Present normal affect, normal thought process, cooperative, good insight and good judgment Comments: Very nice gentleman, 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 I spoke with Turkmen he spoke with [place] we got the practice he expressed that he truly understood what was maintained by the gallbladder surgery why the gallbladder had to come out. And that he could only have ice chips tonight H&P: Result Impressions Cholelithiasis with stone in neck of gallbladder, abdominal pain controlled at this time also gallbladder full of sludge Assessment and Plan *Assessment and plan (1) Cholelithiasis: Status: Acute Qualifiers: Cholecystitis presence: without cholecystitis Cholelithiasis location: gallbladder Biliary obstruction: with biliary obstruction Qualified Code(s): K80.21 - Calculus of gallbladder without cholecystitis with obstruction Category: Medical Code(s): K80.20 - Calculus of gallbladder without cholecystitis without obstruction (2) Abdominal pain, epigastric: Status: Acute Category: Medical Code(s): R10.13 - Epigastric pain Plan 1. Will place patient in the hospital tonight continue IV fluids pain medication as needed antinausea medication as needed. Patient will be n.p.o. but can have ice chips to keep mouth moist. Consult to general surgery to evaluate patient in a.m.
[2024-11-28] MEDS: FAMOTIDINE 20MG/2ML VIAL 20 MG IV ×2 (21:00→21:43)
[2024-11-29 04:00] VITALS: BP 100/54; PULSE 52; RESP 16; TEMP 36.6; O2SAT 97; BMI 26.3
[2024-11-29] MEDS: KETOROLAC 30MG/ML VIAL 15 MG IV ×4 (04:36→21:14)
[2024-11-29] MEDS: HYDROMORPHONE 2MG/ML SYRINGE 0.5 MG IV ×5 (04:37→21:15)
--- NOTE | 2024-11-29 05:04 | PC.NURSE ---
New Admit. V/s, ox4, significant other at bedside. Pt c/o pain, treated per NOV. NPO at midnight for possible procedure. Plan of care on going.
[2024-11-29 06:36] LABS: Basophils % 0.3 % (0.1-2.0); Eosinophils # 0.2 K/mm3 (0.0-0.4); Eosinophils % 3.8 % (0.1-12.0); Hematocrit 39.8 % (42.0-52.0); Lymphocytes # 2.1 K/mm3 (0.7-4.5); Lymphocytes % 36.5 % (10-50); Mean Corpuscular HGB Conc 33.9 g/dL (31.8-35.4); Mean Corpuscular Hemoglobin 30.6 pg (27.0-31.2); Mean Corpuscular Volume 90.2 fl (80-94); Mean Platelet Volume 10.5 fl (7.4-10.4); Monocytes # 0.5 K/mm3 (0.1-1.0); Monocytes % 9.4 % (1.7-9.3); Neutrophils # 2.8 K/mm3 (1.8-7.8); Neutrophils % 49.8 % (37.0-80.0); Platelet Count 265 K/mm3 (142-424); Red Blood Count 4.41 M/mm3 (4.60-6.20); Red Cell Distribution Width 12.1 % (11.5-17.5); White Blood Count 5.7 K/mm3 (4.8-10.8)
[2024-11-29 06:43] LABS: Alanine Aminotransferase 95 U/L (12-78); Albumin Level 3.8 g/dl (3.5-5.0); Albumin/Globulin Ratio 1.6 (1.1-1.8); Alkaline Phosphatase 55 U/L (38-126); Anion Gap 8.2 mEq/L (5-15); Aspartate Amino Transferase 106 U/L (17-59); Bilirubin,Total 0.7 mg/dl (0.2-1.3); Blood Urea Nitrogen 15 mg/dl (9-20); Calcium 8.8 mg/dl (8.4-10.2); Carbon Dioxide 28 mmol/L (22.0-30.0); Chloride 107 mmol/L (98-107); Creatinine Clearance Estimated 123 mL/min (50-200); Estimated Glomerular Filt Rate 108 ml/min (>60); GFR (African American) 130 ML/MIN (>60); Globulin 2.4 g/dL (1.3-3.2); Glucose 87 mg/dl (74-100); Magnesium 2.3 mg/dl (1.6-2.3); Potassium 4.2 mmoL/L (3.5-5.1); Sodium 139 mmol/L (136-145); Total Protein,Serum 6.2 g/dl (6.3-8.2)
[2024-11-29] MEDS: 0.9 % SODIUM CHLORIDE 1000ML 1,000 ML 100 ML IV ×2 (06:51→09:16)
[2024-11-29 06:55] LABS: Hemoglobin 13.5 g/dL (14.1-18.0)
--- NOTE | 2024-11-29 06:58 | EXP.EVENT.NO ---
Problem nurse from floor just notified me that the patient had gotten up to urinate and that the patient's pain had increased. He had received pain medicine a little more than an hour ago. In reviewing labs patient's liver functions are now up., I have asked the nurse to notify surgery of this change and that the patient notify them the patient is having increased pain despite pain medication
--- NOTE | 2024-11-29 07:09 | US_ITS ---
FINAL REPORT TECHNIQUE: Sonographic images of the right upper quadrant were obtained. CLINICAL HISTORY: cholelithiasis FINDINGS: PANCREAS: Unremarkable. LIVER: Homogeneous. No focal hepatic lesion. Portal vein patent with normal directional flow. GALLBLADDER: Large gallstone in the region of the neck of the gallbladder. Gallbladder otherwise filled with sludge. Mild gallbladder wall thickening. No pericholecystic fluid. COMMON DUCT: Dilated to 10 mm. RIGHT KIDNEY: The right kidney measures 9.4 cm. There is no hydronephrosis, mass, or stone. FREE FLUID: None. IMPRESSION: Sludge and stone filled gallbladder with gallbladder wall thickening and common duct dilation. Cholecystitis and common duct stone cannot be excluded. Consider MRCP. Reviewed, Interpreted and Dictated by Kenyatta Marrero MD Transcribed by Klyie Erwin Authenticated and [facility]
[2024-11-29 08:00] VITALS: BP 107/70; PULSE 56; RESP 16; TEMP 36.6; O2SAT 95
--- NOTE | 2024-11-29 10:21 | EXP.SURG.CON ---
History of Present Illness *Admission Date: 11/28/24 *Reason for visit:: Gallstones *History of present illness: Patient is a 39-year-old male. He was seen in the emergency department about 1 week ago at which time he had presented with symptoms consistent with biliary colic. He was found to have gallstones. He had seen Dr. Sutton on 11/24/2024 and consideration is being given for arrangements for outpatient surgery. However he had recurrent symptoms and presented back to the emergency department overnight. He was admitted for inpatient management. He describes pain in the right upper quadrant with radiation to the epigastrium. He has had several attacks over several months occurring about once per week. However it has become progressively more severe necessitating him to ER visits in the past week. He has been given pain medication which has given him some relief but the pain persists. [facility] Disclaimer: The information contained in this section may have been updated after the patient was seen, as this information can be updated by other users. Medical History No significant past medical history Surgical History No significant past surgical history Social History Smoking Status: Never smoker alcohol intake: never current occupational status: employed Travel in the last 8 weeks: None Have you lived/traveled outside US in past 30 days?: No Contact w/someone who lives/traveled outside US past 30 days?: No Exposure to someone with infectious disease in past 14 days?: No Do you have a fever (greater than 100.4 F or 38 C)?: No Have you tested positive for COVID-19: No Exposed to someone with COVID-19 in past 14 days?: No Do you have a sore throat?: No Do you have a cough?: No Do you have any weakness?: No Do you have any diarrhea?: No Are you experiencing any unusual bleeding?: No Do you have any muscle aches/pain?: No Do you have any abdominal pain?: Yes Are you experiencing loss of taste or smell?: No Review of Systems *Neurologic Neurologic: Reports as per [facility] Meds Home Medications and Allergies Home Medications ?Medication ?Instructions ?Recorded ?Confirmed ?Type omeprazole 40 mg capsule,delayed 40 mg PO BID #30 caps 11/22/24 11/28/24 Rx release New Prescriptions to Start Prescriptions: Allergies Allergy/AdvReac Type Severity Reaction Status Date / Time No Known Allergies Allergy Unverified 11/24/24 09:00 Exam (Inpt) Vital signs and Labs for Last 24 Hours: Temp Pulse Resp BP Pulse Ox O2 Del Method 97.8 F 56 L 16 107/70 L 95 Room Air 11/29/24 08:00 11/29/24 08:00 11/29/24 08:00 11/29/24 08:00 11/29/24 08:00 11/29/24 09:00 Laboratory Results - last 24 hr 11/28/24 19:36: WBC 10.2, RBC 5.45, Hgb 16.8, Hct 48.4, MCV 88.8, MCH 30.8, MCHC 34.7, RDW 12.2, Plt Count 333, MPV 10.5 H, Neut % (Auto) 63.8, Lymph % (Auto) 26.0, [place] % (Auto) 7.5, Eos % (Auto) 1.9, Baso % (Auto) 0.4, Neut # (Auto) 6.5, Lymph # (Auto) 2.7, [place] # (Auto) 0.8, Eos # (Auto) 0.2, Baso # (Auto) 0.0, Sodium 139, Potassium 4.1, Chloride 103, Carbon Dioxide 27, Anion Gap 13.1, BUN 14, Creatinine 0.70, Estimated Creat Clear 127, Estimated GFR 126, Est GFR ( Amer) 152, Glucose 91, Calcium 9.3, Total Bilirubin 0.7, AST 49, ALT 55, Alkaline Phosphatase 83, Total Protein 9.0 H, Albumin 5.4 H, Globulin 3.6 H, Albumin/Globulin Ratio 1.5, Lipase 94, Procalcitonin 0.033 11/28/24 19:55: Lactate 1.4 11/29/24 05:54: WBC 5.7 D, RBC 4.41 L, Hgb 13.5 L D, Hct 39.8 L, MCV 90.2, MCH 30.6, MCHC 33.9, RDW 12.1, Plt Count 265, MPV 10.5 H, Neut % (Auto) 49.8, Lymph % (Auto) 36.5, [place] % (Auto) 9.4 H, Eos % (Auto) 3.8, Baso % (Auto) 0.3, Neut # (Auto) 2.8, Lymph # (Auto) 2.1, [place] # (Auto) 0.5, Eos # (Auto) 0.2, Baso # (Auto) 0.0, Sodium 139, Potassium 4.2, Chloride 107, Carbon Dioxide 28, Anion Gap 8.2, BUN 15, Creatinine 0.80, Estimated Creat Clear 123, Estimated GFR 108, Est GFR ( Amer) 130, Glucose 87, Calcium 8.8, Magnesium 2.3, Total Bilirubin 0.7, AST 106 H D, ALT 95 H D, Alkaline Phosphatase 55, Total Protein 6.2 L D, Albumin 3.8 D, Globulin 2.4, Albumin/Globulin Ratio 1.6 I & O for Labs for Last 24 Hours: Intake & Output 11/26/24 11/27/24 11/28/24 11/29/24 11:59 11:59 11:59 11:59 Output Total 0 / 0 Balance 0 / 0 Weight 154 lb 3.2 oz Constitutional: no acute distress Comments:: Abdomen is soft. He has tenderness with voluntary guarding in the right upper quadrant. Results Labs 11/29/24 05:54 11/29/24 05:54 Labs: Laboratory Results - last 24 hr 11/28/24 19:36: WBC 10.2, RBC 5.45, Hgb 16.8, Hct 48.4, MCV 88.8, MCH 30.8, MCHC 34.7, RDW 12.2, Plt Count 333, MPV 10.5 H, Neut % (Auto) 63.8, Lymph % (Auto) 26.0, [place] % (Auto) 7.5, Eos % (Auto) 1.9, Baso % (Auto) 0.4, Neut # (Auto) 6.5, Lymph # (Auto) 2.7, [place] # (Auto) 0.8, Eos # (Auto) 0.2, Baso # (Auto) 0.0, Sodium 139, Potassium 4.1, Chloride 103, Carbon Dioxide 27, Anion Gap 13.1, BUN 14, Creatinine 0.70, Estimated Creat Clear 127, Estimated GFR 126, Est GFR ( Amer) 152, Glucose 91, Calcium 9.3, Total Bilirubin 0.7, AST 49, ALT 55, Alkaline Phosphatase 83, Total Protein 9.0 H, Albumin 5.4 H, Globulin 3.6 H, Albumin/Globulin Ratio 1.5, Lipase 94, Procalcitonin 0.033 11/28/24 19:55: Lactate 1.4 11/29/24 05:54: WBC 5.7 D, RBC 4.41 L, Hgb 13.5 L D, Hct 39.8 L, MCV 90.2, MCH 30.6, MCHC 33.9, RDW 12.1, Plt Count 265, MPV 10.5 H, Neut % (Auto) 49.8, Lymph % (Auto) 36.5, [place] % (Auto) 9.4 H, Eos % (Auto) 3.8, Baso % (Auto) 0.3, Neut # (Auto) 2.8, Lymph # (Auto) 2.1, [place] # (Auto) 0.5, Eos # (Auto) 0.2, Baso # (Auto) 0.0, Sodium 139, Potassium 4.2, Chloride 107, Carbon Dioxide 28, Anion Gap 8.2, BUN 15, Creatinine 0.80, Estimated Creat Clear 123, Estimated GFR 108, Est GFR ( Amer) 130, Glucose 87, Calcium 8.8, Magnesium 2.3, Total Bilirubin 0.7, AST 106 H D, ALT 95 H D, Alkaline Phosphatase 55, Total Protein 6.2 L D, Albumin 3.8 D, Globulin 2.4, Albumin/Globulin Ratio 1.6 Assessment and Plan *Assessment and plan (1) Cholelithiasis: Status: Acute Qualifiers: Biliary obstruction: with biliary obstruction Cholecystitis presence: without cholecystitis Cholelithiasis location: gallbladder Qualified Code(s): K80.21 - Calculus of gallbladder without cholecystitis with obstruction Category: Medical Code(s): K80.20 - Calculus of gallbladder without cholecystitis without obstruction Plan Patient has findings likely consistent with clinical acute cholecystitis. Awaiting official gallbladder ultrasound to assess for findings of acute cholecystitis and assess for ductal dilatation. Pending ultrasound may proceed with cholecystectomy. However if there is some evidence of common duct stone on ultrasound may need continued inpatient observation for potential ERCP primarily.
[2024-11-29] MEDS: PIPERCILLIN/TAZO 3.375 GM in 0.9 % SODIUM CHLORIDE 50 ML IV ×2 (15:06→21:14)
[2024-11-29 16:00] VITALS: BP 97/55; PULSE 49; RESP 16; TEMP 36.6; O2SAT 98
--- NOTE | 2024-11-29 18:06 | PC.NURSE ---
pt has c/o pain frequently t/o shift to RUQ, relieved by MAR each time. family has been at bs. so far tolerating clear liquid diet. no concerns or needs at this time
--- NOTE | 2024-11-29 19:06 | P.PN_ITS ---
Subjective *Date: 11/29/24 *Time: 22:00 Interval history: Complaining of pain this morning. Pain in right upper quadrant. Response to opiates. Denies fever, chest pain, shortness of breath. Mild nausea: He has pain. No yisel emesis. Alert and oriented x 4 Medical Exam Vital signs and Labs for Last 24 Hours: Vital Signs Temp Pulse Pulse Resp BP BP Pulse Ox 11/29/24 17:00 11/29/24 16:00 97.9 F 49 L 16 97/55 L 98 11/29/24 15:00 11/29/24 13:00 11/29/24 11:00 11/29/24 09:00 11/29/24 08:00 11/29/24 08:00 97.8 F 56 L 16 107/70 L 95 11/29/24 06:29 11/29/24 04:51 11/29/24 04:00 97.9 F 52 L 16 100/54 L 97 11/29/24 03:00 11/29/24 01:00 11/28/24 23:00 11/28/24 21:00 11/28/24 20:36 11/28/24 20:28 98.1 F 78 20 143/78 H 11/28/24 20:20 97.9 F 57 L 16 133/80 96 11/28/24 19:18 98.1 F 92 H 100 H 143/92 H 100 O2 Del Method 11/29/24 17:00 Room Air 11/29/24 16:00 Room Air 11/29/24 15:00 Room Air 11/29/24 13:00 Room Air 11/29/24 11:00 Room Air 11/29/24 09:00 Room Air 11/29/24 08:00 Room Air 11/29/24 08:00 Room Air 11/29/24 06:29 Room Air 11/29/24 04:51 Room Air 11/29/24 04:00 Room Air 11/29/24 03:00 Room Air 11/29/24 01:00 Room Air 11/28/24 23:00 Room Air 11/28/24 21:00 Room Air 11/28/24 20:36 Room Air 11/28/24 20:28 Room Air 11/28/24 20:20 Room Air 11/28/24 19:18 Room Air Intake and Output 11/29/24 11/29/24 11/29/24 07:59 15:59 23:59 Intake Total / Output Total 0 / 0 Balance 0 360 / Intake: Intake, Oral Amount Output: Output, Urine Amount 0 / 0 Other: Number of Unmeasured Voids 1 Weight 69.944 kg Patient Weight 11/29/24 23:59 Weight 69.944 kg Laboratory Results - last 24 hr 11/28/24 19:36: WBC 10.2, RBC 5.45, Hgb 16.8, Hct 48.4, MCV 88.8, MCH 30.8, MCHC 34.7, RDW 12.2, Plt Count 333, MPV 10.5 H, Neut % (Auto) 63.8, Lymph % (Auto) 26.0, [place] % (Auto) 7.5, Eos % (Auto) 1.9, Baso % (Auto) 0.4, Neut # (Auto) 6.5, Lymph # (Auto) 2.7, [place] # (Auto) 0.8, Eos # (Auto) 0.2, Baso # (Auto) 0.0, Sodium 139, Potassium 4.1, Chloride 103, Carbon Dioxide 27, Anion Gap 13.1, BUN 14, Creatinine 0.70, Estimated Creat Clear 127, Estimated GFR 126, Est GFR ( Amer) 152, Glucose 91, Calcium 9.3, Total Bilirubin 0.7, AST 49, ALT 55, Alkaline Phosphatase 83, Total Protein 9.0 H, Albumin 5.4 H, Globulin 3.6 H, Albumin/Globulin Ratio 1.5, Lipase 94, Procalcitonin 0.033 11/28/24 19:55: Lactate 1.4 11/29/24 05:54: WBC 5.7 D, RBC 4.41 L, Hgb 13.5 L D, Hct 39.8 L, MCV 90.2, MCH 30.6, MCHC 33.9, RDW 12.1, Plt Count 265, MPV 10.5 H, Neut % (Auto) 49.8, Lymph % (Auto) 36.5, [place] % (Auto) 9.4 H, Eos % (Auto) 3.8, Baso % (Auto) 0.3, Neut # (Auto) 2.8, Lymph # (Auto) 2.1, [place] # (Auto) 0.5, Eos # (Auto) 0.2, Baso # (Auto) 0.0, Sodium 139, Potassium 4.2, Chloride 107, Carbon Dioxide 28, Anion Gap 8.2, BUN 15, Creatinine 0.80, Estimated Creat Clear 123, Estimated GFR 108, Est GFR ( Amer) 130, Glucose 87, Calcium 8.8, Magnesium 2.3, Total Bilirubin 0.7, AST 106 H D, ALT 95 H D, Alkaline Phosphatase 55, Total Protein 6.2 L D, Albumin 3.8 D, Globulin 2.4, Albumin/Globulin Ratio 1.6 I & O for Labs for Last 24 Hours: Intake & Output 11/26/24 11/27/24 11/28/24 11/29/24 23:59 23:59 23:59 23:59 Intake Total 360 / 360 Output Total 0 / 0 Balance 360 / 360 Weight 68.266 kg 69.944 kg Constitutional: Present no acute distress, average body habitus and cooperative Head: Present atraumatic and normocephalic ENT: Present normal exam Respiratory: Present normal respiratory effort; Absent rhonchi, wheezes or crackles Cardiac: Present Reg Rate and Rhythm GI: Present soft, tenderness (Right upper quadrant, positive Reina sign) and normal bowel sounds; Absent distention Extremities: Present normal inspection and full ROM Skin: Present intact; Absent erythema Neuro: Present Grossly Intact, alert, awake, oriented x 3 and moves all extremities Assessment and Plan *Assessment and plan (1) Cholelithiasis: Status: Acute Qualifiers: Biliary obstruction: with biliary obstruction Cholecystitis presence: without cholecystitis Cholelithiasis location: gallbladder Qualified Code(s): K80.21 - Calculus of gallbladder without cholecystitis with obstruction Category: Medical Code(s): K80.20 - Calculus of gallbladder without cholecystitis without obstruction (2) Abdominal pain, epigastric: Status: Acute Category: Medical Code(s): R10.13 - Epigastric pain Plan 39-year-old male with concern for cholecystitis. Admitted to medicine for further management. Surgery evaluating today. Obtaining right upper quadrant ultrasound. Discussed case with surgery, recommend serial labs and exam given slight elevation in liver enzymes this morning. Bilirubin 0.7, AST 106, ALT 95, alk phos 55. Reviewed CT from last week that shows cholecystitis. Repeat ultrasound obtained today showing pericholecystic fluid and gallstones. Per my review. Has enlarged CBD at 10 mm. Will repeat CMP this evening to monitor for LFT trend. If LFTs increasing, will consult GI in the morning for possible ERCP. If trending down are stable, surgery recommending proceeding with cholecystectomy. White count normal at 5.7. Initiating on Zosyn 3.375 g every 6 hours for medical management. Kidney function normal BUN 15, creatinine 0.8. Repeat CBC, CMP, magnesium ordered for the morning. NPO. Pain control regimen with Toradol 15 mg every 6 hours as needed for moderate to severe pain. Morphine IV available. Monitoring for toxicity. NPO. Reevaluate in the morning.
[2024-11-29 19:47] LABS: Albumin Level 3.9 g/dl (3.5-5.0); Chloride 107 mmol/L (98-107); Potassium 4.1 mmoL/L (3.5-5.1); Sodium 137 mmol/L (136-145)
[2024-11-29 19:50] LABS: Alanine Aminotransferase 82 U/L (12-78); Albumin/Globulin Ratio 1.6 (1.1-1.8); Alkaline Phosphatase 68 U/L (38-126); Anion Gap 6.1 mEq/L (5-15); Aspartate Amino Transferase 67 U/L (17-59); Bilirubin,Total 0.8 mg/dl (0.2-1.3); Blood Urea Nitrogen 12 mg/dl (9-20); Carbon Dioxide 28 mmol/L (22.0-30.0); Creatinine Clearance Estimated 123 mL/min (50-200); Estimated Glomerular Filt Rate 108 ml/min (>60); GFR (African American) 130 ML/MIN (>60); Globulin 2.4 g/dL (1.3-3.2); Total Protein,Serum 6.3 g/dl (6.3-8.2)
[2024-11-29 19:51] LABS: Calcium 8.2 mg/dl (8.4-10.2); Glucose 97 mg/dl (74-100)
[2024-11-29 20:00] VITALS: BP 106/64; PULSE 50; RESP 14; TEMP 36.6; O2SAT 97
[2024-11-29] MEDS: FAMOTIDINE 20MG/2ML VIAL 20 MG IV (21:14)
[2024-11-30] VITALS (23 sets, daily range): BP systolic 99–136; BP diastolic 61–85; PULSE 52–78; RESP 14–20; TEMP 36.5–38; O2SAT 96–99; BMI 26.3
[2024-11-30] MEDS: PIPERCILLIN/TAZO 3.375 GM in 0.9 % SODIUM CHLORIDE 50 ML IV ×4 (03:19→21:12)
[2024-11-30] MEDS: KETOROLAC 30MG/ML VIAL 15 MG IV ×2 (04:22→15:29)
[2024-11-30] MEDS: HYDROMORPHONE 2MG/ML SYRINGE 0.5 MG IV ×4 (04:23→18:50)
--- NOTE | 2024-11-30 05:17 | PC.NURSE ---
v/s, ox4. Pt c/o pain, treated per NOV. at bedside. NPO at midnight. Plan of care ongoing.
[2024-11-30] MEDS: 0.9 % SODIUM CHLORIDE 1000ML 1,000 ML 75 ML IV ×3 (05:58→19:15)
[2024-11-30 06:33] LABS: Basophils % 0.3 % (0.1-2.0); Eosinophils # 0.4 K/mm3 (0.0-0.4); Eosinophils % 5.7 % (0.1-12.0); Hematocrit 37.2 % (42.0-52.0); Hemoglobin 12.8 g/dL (14.1-18.0); Lymphocytes # 1.9 K/mm3 (0.7-4.5); Lymphocytes % 31.3 % (10-50); Mean Corpuscular HGB Conc 34.4 g/dL (31.8-35.4); Mean Corpuscular Hemoglobin 31.4 pg (27.0-31.2); Mean Corpuscular Volume 91.2 fl (80-94); Mean Platelet Volume 10.9 fl (7.4-10.4); Monocytes # 0.5 K/mm3 (0.1-1.0); Monocytes % 8.8 % (1.7-9.3); Neutrophils # 3.3 K/mm3 (1.8-7.8); Neutrophils % 53.7 % (37.0-80.0); Platelet Count 254 K/mm3 (142-424); Red Blood Count 4.08 M/mm3 (4.60-6.20); Red Cell Distribution Width 12.3 % (11.5-17.5); White Blood Count 6.1 K/mm3 (4.8-10.8)
[2024-11-30 06:37] LABS: Alanine Aminotransferase 67 U/L (12-78); Albumin Level 3.6 g/dl (3.5-5.0); Albumin/Globulin Ratio 1.6 (1.1-1.8); Alkaline Phosphatase 60 U/L (38-126); Aspartate Amino Transferase 44 U/L (17-59); Bilirubin,Total 0.8 mg/dl (0.2-1.3); Blood Urea Nitrogen 9 mg/dl (9-20); Calcium 8.3 mg/dl (8.4-10.2); Carbon Dioxide 26 mmol/L (22.0-30.0); Chloride 110 mmol/L (98-107); Creatinine Clearance Estimated 123 mL/min (50-200); Estimated Glomerular Filt Rate 108 ml/min (>60); GFR (African American) 130 ML/MIN (>60); Globulin 2.3 g/dL (1.3-3.2); Glucose 97 mg/dl (74-100); Magnesium 2.3 mg/dl (1.6-2.3); Sodium 139 mmol/L (136-145); Total Protein,Serum 5.9 g/dl (6.3-8.2)
--- NOTE | 2024-11-30 06:51 | P.PN_ITS ---
Subjective Narrative: Patient still with some pain. Exam Data for Last 24 hours Vital signs and Labs for Last 24 Hours: Temp Pulse Resp BP Pulse Ox O2 Del Method 98.0 F 53 L 14 99/63 L 96 Room Air 11/30/24 04:00 11/30/24 04:00 11/30/24 04:00 11/30/24 04:00 11/30/24 04:00 11/30/24 06:03 Laboratory Results - last 24 hr 11/29/24 05:54: WBC 5.7 D, RBC 4.41 L, Hgb 13.5 L D, Hct 39.8 L, MCV 90.2, MCH 30.6, MCHC 33.9, RDW 12.1, Plt Count 265, MPV 10.5 H, Neut % (Auto) 49.8, Lymph % (Auto) 36.5, [place] % (Auto) 9.4 H, Eos % (Auto) 3.8, Baso % (Auto) 0.3, Neut # (Auto) 2.8, Lymph # (Auto) 2.1, [place] # (Auto) 0.5, Eos # (Auto) 0.2, Baso # (Auto) 0.0 11/29/24 19:28: Sodium 137, Potassium 4.1, Chloride 107, Carbon Dioxide 28, Anion Gap 6.1, BUN 12, Creatinine 0.80, Estimated Creat Clear 123, Estimated GFR 108, Est GFR ( Amer) 130, Glucose 97, Calcium 8.2 L, Total Bilirubin 0.8, AST 67 H D, ALT 82 H, Alkaline Phosphatase 68, Total Protein 6.3, Albumin 3.9, Globulin 2.4, Albumin/Globulin Ratio 1.6 11/30/24 05:35: WBC 6.1, RBC 4.08 L, Hgb 12.8 L, Hct 37.2 L, MCV 91.2, MCH 31.4 H, MCHC 34.4, RDW 12.3, Plt Count 254, MPV 10.9 H, Neut % (Auto) 53.7, Lymph % (Auto) 31.3, [place] % (Auto) 8.8, Eos % (Auto) 5.7, Baso % (Auto) 0.3, Neut # (Auto) 3.3, Lymph # (Auto) 1.9, [place] # (Auto) 0.5, Eos # (Auto) 0.4, Baso # (Auto) 0.0, Sodium 139, Potassium 4.0, Chloride 110 H, Carbon Dioxide 26, Anion Gap 7.0, BUN 9, Creatinine 0.80, Estimated Creat Clear 123, Estimated GFR 108, Est GFR ( Amer) 130, Glucose 97, Calcium 8.3 L, Magnesium 2.3, Total Bilirubin 0.8, AST 44 D, ALT 67, Alkaline Phosphatase 60, Total Protein 5.9 L, Albumin 3.6, Globulin 2.3, Albumin/Globulin Ratio 1.6 I & O for Last 24 hours: Intake & Output 11/27/24 11/28/24 11/29/24 11/30/24 11:59 11:59 11:59 11:59 Intake Total 360 / 360 Output Total 0 / 0 Balance 0 / 0 360 / 360 Weight 154 lb 3.2 oz 154 lb 3.202 oz *Routine Abdominal Exam Abdominal: Present soft and tenderness Progress Note: A&P Assessment and plan (1) Cholelithiasis: Status: Acute Assessment and plan: LFTs have shown some slight improvement. Low to moderate possibility of choledocholithiasis. Plan for laparoscopic possibly open cholecystectomy with possible intraoperative cholangiogram today. (2) Abdominal pain, epigastric: Status: Acute
--- NOTE | 2024-11-30 11:43 | EXP.ANES.CKL ---
[facility] Disclaimer: The information contained in this section may have been updated after the patient was seen, as this information can be updated by other users. Medical History No significant past medical history Surgical History No significant past surgical history Social History Smoking Status: Never smoker alcohol intake: never substance use type: denies use current occupational status: employed Travel in the last 8 weeks: None [facility] Anesthesia Checklist Patient Identification Patient Identification: Arm Band and Verbal (Name & ) Structural Data Admitted From: Inpatient Planned Operative Procedure/s: Lap denys Consent for Planned Operative Procedure(s) Verified: Yes Verified Documents: Surgical Consent and History and Physical NPO Status Verified Time NPO: 00:00 Chart Verification Results Verified: CBC Additional verifications Patient : No Anesthesia Reactions: No Cephalosporin Allergy: No Airway Assessment Mallampati Score:: Class II Dentition: Good Dentition Neurological Assessment Level of Consciousness: Awake, Alert and Appropriate Hx Seizures: No Numbness or tingling in extremities: No Anesthesia Plan Anesthesia Risk discussed: Yes Anesthesia Plan: Patient unable to respond/answer ASA Class: I Anesthesia Type: General
--- NOTE | 2024-11-30 13:31 | P.OP_ITS ---
Date of procedure: 11/30/24 Pre-op Diagnosis:: Acute cholecystitis Post-op Diagnosis:: Same Procedure performed:: Laparoscopic cholecystectomy Surgeon:: Js Greenwood MD Anesthesia: GETEve Estimated blood loss (mL): 20 Clinical Note:: Patient is a 39-year-old male. He was seen in the emergency department on 11/22/2024 at which time he had presented with symptoms consistent with biliary colic. He was found to have gallstones. He had seen Dr. Sutton on 11/24/2024 and consideration is being given for arrangements for outpatient surgery. However he had recurrent symptoms and presented back to the emergency department overnight on 11/28/2024. He was admitted for inpatient management. He describes pain in the right upper quadrant with radiation to the epigastrium. He has had several attacks over several months occurring about once per week. However it has become progressively more severe necessitating him to ER visits in the past week. He was admitted for inpatient management. Surgical consultation was obtained. He underwent definitive gallbladder ultrasound. This revealed sludge and stone filled gallbladder with gallbladder wall thickening. Common bile duct measured 10 mm. Patient did have some slight elevation of transaminases with normal alkaline phosphatase and bilirubin. Discussion and consideration was given for MRCP. However, this was felt to potentially be inconclusive and suboptimal study given the findings of acute cholecystitis. He underwent serial laboratory evaluation and liver function test showed normalization. Therefore suspicion for possible retained common duct stone was low and plan was made to proceed with cholecystectomy with pot ential intraoperative cholangiogram if deemed feasible. Operative findings:: Gallbladder was obscured with adhesions of omentum due to the inflammation. He had a significantly inflamed gallbladder with moderate stone impacted in the neck of the gallbladder. There was pericholecystic edema. 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 Given the amount of inflammation and edema at the neck and jonathan hepatis it was felt unsafe and unwise to proceed with cholangiogram Operative note:: Consent was obtained and patient was taken the operating room. He was given preoperative intravenous antibiotics. In the operating room he was placed in a supine position. General anesthesia was induced via endotracheal tube. Abdomen was prepped and draped in the standard surgical fashion. Subumbilical skin incision was made. While performing abdominal wall lift Veress needle was inserted. CO2 pneumoperitoneum was achieved to 15 mmHg. 11 mm optical trocar was inserted at the umbilicus. Intraperitoneal contents were visualized. He was positioned in reverse Trendelenburg with left side down. A couple 5 mm trocars were inserted in the right upper abdomen. 10 mm trocar was inserted in the epigastrium. There were some adhesions of omentum to the gallbladder and these were taken down using blunt dissection. The fundus of the gallbladder was then grasped retracted anteriorly and superiorly over the dome of the liver. Remaining adhesions were taken down. Attempt was made to retract the infundibulum of the gallbladder laterally. However there was significant thickening and most notable was a stone tightly impacted in the neck of the gallbladder which made dissection rather difficult. Prolonged dissection was carried out bluntly incising the visceral peritoneum. There was some oozing from the gallbladder and occasionally Surgicel was inserted for temporary hemostasis and dissection. It was then removed. Attempt was made to milk the stone into the body of the gallbladder but it was tightly impacted in the neck. There was a significant amount of pericholecystic edema. Given the inflammation it was felt unsafe and unwise to proceed with cholangiogram due to the potential duct injury and also due to the fact that the likely given the clinical scenario with the stone in the neck of the gallbladder he may have ductal dilatation secondary to emergency syndrome. Ultimately the cystic duct and cystic artery were isolated. The cystic duct was multiply clipped and sharply divided. Cystic artery was carefully coagulated with MARY ultrasonic robotic mariama and divided. Gallbladder was dissected free from the liver in a retrograde fashion using MARY ultrasonic harmonic mariama. Gallbladder was placed within an Endo Catch retrieval device and removed from the peritoneal cavity via the umbilical trocar site which required some extension of fascial incision for delivery of thickened gallbladder with moderate stone. Gallbladder fossa was then irrigated and aspirated until clear. There appeared to be good hemostasis. Trocars were removed as CO2 pneumoperitoneum was evacuated. Fascia at the umbilicus closed with several interrupted 0 Vicryl sutures. Local anesthetic was infiltrated. Anterior rectus fascia at the epigastric site was closed with a 0 Vicryl suture. Skin incisions were closed with 4-0 Monocryl subcuticular fashion. Steri- Strips and dressings were applied. Condition: stable Disposition: PACU Complications:: None immediately apparent
--- NOTE | 2024-11-30 13:47 | EXP.ANES.I ---
[facility] Anesthesia Record Part I Anesthesia Record I Intake, IV Amount: 1,500 Hydration: Adequate Estimated blood loss (mL): 0 Urine output (mL): 0 Blood Pressure: 117/71 SaO2: 97 Pulse Rate: 65 Airway Patency: Patent Respiratory Rate: 14 Temperature: 98 F Patient is:: Awake and Stable Stable to PACU at:: 13:40
--- NOTE | 2024-11-30 15:15 | EXP.ANES.II ---
[facility] Anesthesia Record Part II Anesthesia Record Part II Discharge Time: 14:10 Destination: Medical Surgical Department PACU nurse assessment reviewed?: Yes Patient Condition:: Good Anesthesia Complications:: None Swallowing reflex intact?: Yes Airway Patency: Patent Cyanosis?: No Blood Pressure: 116/75 SaO2: 98 Respiratory Rate: 16 Pulse Rate: 72 Temperature: 98.9 F Mental Status: Alert & Oriented Pain level:: 0 Nausea and/or vomitting:: None Intake, IV Amount: 0 Hydration: Adequate
[2024-11-30] MEDS: SIMETHICONE 80MG CHEWABLE TABLET 160 MG PO (17:24)
--- NOTE | 2024-11-30 17:47 | PC.NURSE ---
patient is a/ox4 and remains on RA tolerating well. LAP site dressing are C/D/I. has been c/o pain, treated per NOV. notified MD and new orders received for gas pain. tolerating full liquid diet. has ambulated to the bathroom and voided. patient stated he has not passed flatus at this time. call light within reach, family at bedside. no further requests at this time.
--- NOTE | 2024-11-30 21:23 | P.PN_ITS ---
Subjective *Date: 11/30/24 *Time: 21:23 Interval history: Patient tolerated laparoscopic cholecystectomy well today, has pain at incision sites. Continue Dilaudid, simethicone as needed. Full liquid diet for now, advance as tolerated. Exam Data for Last 24 hours Vital signs and Labs for Last 24 Hours: Temp Pulse Resp BP Pulse Ox O2 Del Method 98.3 F 74 14 114/65 97 Room Air 11/30/24 17:05 11/30/24 19:05 11/30/24 19:05 11/30/24 19:05 11/30/24 19:05 11/30/24 20:34 Laboratory Results - last 24 hr 11/30/24 05:35: WBC 6.1, RBC 4.08 L, Hgb 12.8 L, Hct 37.2 L, MCV 91.2, MCH 31.4 H, MCHC 34.4, RDW 12.3, Plt Count 254, MPV 10.9 H, Neut % (Auto) 53.7, Lymph % (Auto) 31.3, [place] % (Auto) 8.8, Eos % (Auto) 5.7, Baso % (Auto) 0.3, Neut # (Auto) 3.3, Lymph # (Auto) 1.9, [place] # (Auto) 0.5, Eos # (Auto) 0.4, Baso # (Auto) 0.0, Sodium 139, Potassium 4.0, Chloride 110 H, Carbon Dioxide 26, Anion Gap 7.0, BUN 9, Creatinine 0.80, Estimated Creat Clear 123, Estimated GFR 108, Est GFR ( Amer) 130, Glucose 97, Calcium 8.3 L, Magnesium 2.3, Total Bilirubin 0.8, AST 44 D, ALT 67, Alkaline Phosphatase 60, Total Protein 5.9 L, Albumin 3.6, Globulin 2.3, Albumin/Globulin Ratio 1.6 I & O for Last 24 hours: Intake & Output 11/27/24 11/28/24 11/29/24 11/30/24 23:59 23:59 23:59 23:59 Intake Total 360 / 360 1620 / 1620 Output Total 0 / 0 0 / 0 Balance 360 / 360 1620 / 1620 Weight 68.266 kg 69.944 kg 69.944 kg Constitutional Constitutional: no acute distress *Routine HEENT Exam Head: Present normocephalic Eye: Present EOMI and PERRL ENT: Present mucous membranes moist *Routine Neck Exam Neck: Present supple; Absent lymphadenopathy *Routine Respiratory Exam Respiratory: Present CTA bilaterally *Routine Cardiovascular Exam Cardiovascular: Present RRR *Routine Abdominal Exam Abdominal: Present soft, normoactive bowel sounds and tenderness *Routine Extremities Exam Extremities: Absent cyanosis, clubbing or edema *Routine Skin Exam Skin: Present warm; Absent rash *Routine Neurological Exam Neurological: Present alert and oriented X3 Assessment and Plan *Assessment and plan (1) Cholelithiasis: Status: Acute Qualifiers: Biliary obstruction: with biliary obstruction Cholecystitis presence: without cholecystitis Cholelithiasis location: gallbladder Qualified Code(s): K80.21 - Calculus of gallbladder without cholecystitis with obstruction Category: Medical Code(s): K80.20 - Calculus of gallbladder without cholecystitis without obstruction (2) Abdominal pain, epigastric: Status: Acute Category: Medical Code(s): R10.13 - Epigastric pain Plan Patient is a 39-year-old male who presented with abdominal pain and admitted for acute cholecystitis. #Acute cholecystitis ? General Surgery consulted, s/p laparoscopic cholecystectomy on 11/30/2024. Patient tolerated procedure well, continues to have pain at incision sites. ? Continue Dilaudid, simethicone as needed. ? Continue Zosyn day 2. ? Full liquid diet, advance as tolerated. ? LFTs improved, no plans for ERCP. Full code DVT prophylaxis: Lovenox 40 mg
[2024-11-30] MEDS: FAMOTIDINE 20MG/2ML VIAL 20 MG IV (21:59)
[2024-12-01] VITALS: BP 127/59; PULSE 83; RESP 16; TEMP 36.8; O2SAT 95
[2024-12-01] MEDS: SIMETHICONE 80MG CHEWABLE TABLET 160 MG PO ×3 (00:21→11:05)
[2024-12-01] MEDS: HYDROMORPHONE 2MG/ML SYRINGE 0.5 MG IV ×2 (00:24→06:25)
[2024-12-01] MEDS: KETOROLAC 30MG/ML VIAL 15 MG IV (02:19)
[2024-12-01] MEDS: PIPERCILLIN/TAZO 3.375 GM in 0.9 % SODIUM CHLORIDE 50 ML IV ×2 (02:30→08:19)
[2024-12-01 04:00] VITALS: BP 156/70; PULSE 69; RESP 16; TEMP 36.6; O2SAT 97; BMI 27.0
--- NOTE | 2024-12-01 04:17 | PC.NURSE ---
Pt c/o right sided abdominal pain, treated per MAR. v/s, ox4. Pt has some questions about procedure, following up with day shift nurse to talk to surgeon. Plan of care ongoing.
[2024-12-01 06:36] LABS: Alanine Aminotransferase 67 U/L (12-78); Albumin Level 3.8 g/dl (3.5-5.0); Albumin/Globulin Ratio 1.7 (1.1-1.8); Alkaline Phosphatase 63 U/L (38-126); Anion Gap 10.5 mEq/L (5-15); Aspartate Amino Transferase 48 U/L (17-59); Bilirubin,Total 0.5 mg/dl (0.2-1.3); Blood Urea Nitrogen 6 mg/dl (9-20); Calcium 8.7 mg/dl (8.4-10.2); Carbon Dioxide 23 mmol/L (22.0-30.0); Chloride 110 mmol/L (98-107); Creatinine Clearance Estimated 144 mL/min (50-200); Estimated Glomerular Filt Rate 126 ml/min (>60); GFR (African American) 152 ML/MIN (>60); Globulin 2.3 g/dL (1.3-3.2); Glucose 125 mg/dl (74-100); Potassium 3.5 mmoL/L (3.5-5.1); Sodium 140 mmol/L (136-145); Total Protein,Serum 6.1 g/dl (6.3-8.2)
[2024-12-01 07:49] VITALS: BP 109/67; PULSE 57; RESP 16; TEMP 36.7; O2SAT 97
[2024-12-01] MEDS: ENOXAPARIN 40MG/0.4ML SYRINGE 40 MG SUBCUT (08:19)
--- NOTE | 2024-12-01 08:26 | EXP.SURG.PN ---
Subjective Narrative: Feels okay this morning . He is experiencing postoperative soreness . Exam Data for Last 24 hours Vital signs and Labs for Last 24 Hours: Temp Pulse Resp BP Pulse Ox O2 Del Method 98.1 F 57 L 16 109/67 L 97 Room Air 12/01/24 07:49 12/01/24 07:49 12/01/24 07:49 12/01/24 07:49 12/01/24 07:49 12/01/24 07:49 Laboratory Results - last 24 hr 12/01/24 05:35: Sodium 140, Potassium 3.5, Chloride 110 H, Carbon Dioxide 23, Anion Gap 10.5, BUN 6 L D, Creatinine 0.70, Estimated Creat Clear 144, Estimated GFR 126, Est GFR ( Amer) 152, Glucose 125 H D, Calcium 8.7, Total Bilirubin 0.5, AST 48, ALT 67, Alkaline Phosphatase 63, Total Protein 6.1 L, Albumin 3.8, Globulin 2.3, Albumin/Globulin Ratio 1.7 I & O for Last 24 hours: Intake & Output 11/28/24 11/29/24 11/30/24 12/01/24 11:59 11:59 11:59 11:59 Intake Total 360 / 360 1740 / 1740 Output Total 0 / 0 0 / 0 0 / 0 Balance 0 / 0 360 / 360 1740 / 1740 Weight 154 lb 3.2 oz 154 lb 3.202 oz 158 lb 2 oz Constitutional Constitutional: no acute distress *Routine Respiratory Exam Respiratory: Absent respiratory distress *Routine Cardiovascular Exam Cardiovascular: Absent tachycardia *Routine Abdominal Exam Comments: Dressings intact. No erythema. Progress Note: A&P Assessment and plan (1) Acute cholecystitis due to biliary calculus: Status: Acute Assessment and plan: Overall, doing well status post laparoscopic cholecystectomy. Intraoperative cholangiogram not completed secondary to associated inflammatory response. Bilirubin normal this morning. 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 OK from surgical standpoint for discharge home with close outpatient follow-up
[2024-12-01 08:57] LABS: Basophils % 0.2 % (0.1-2.0); Eosinophils % 0.3 % (0.1-12.0); Hematocrit 35.7 % (42.0-52.0); Hemoglobin 12.2 g/dL (14.1-18.0); Lymphocytes # 1.8 K/mm3 (0.7-4.5); Lymphocytes % 14.1 % (10-50); Mean Corpuscular HGB Conc 34.2 g/dL (31.8-35.4); Mean Corpuscular Hemoglobin 30.7 pg (27.0-31.2); Mean Corpuscular Volume 89.9 fl (80-94); Mean Platelet Volume 11.4 fl (7.4-10.4); Monocytes % 8.1 % (1.7-9.3); Neutrophils # 9.7 K/mm3 (1.8-7.8); Platelet Count 268 K/mm3 (142-424); Red Blood Count 3.97 M/mm3 (4.60-6.20); White Blood Count 12.7 K/mm3 (4.8-10.8)
--- NOTE | 2024-12-01 11:45 | P.DS_ITS ---
General Admission date:: 11/28/24 HPI HPI HPI: Patient is a 39-year-old male. He was seen in the emergency department about 1 week ago at which time he had presented with symptoms consistent with biliary colic. He was found to have gallstones. He had seen Dr. Sutton on 11/24/2024 and consideration is being given for arrangements for outpatient surgery. However he had recurrent symptoms and presented back to the emergency department overnight. He was admitted for inpatient management. He describes pain in the right upper quadrant with radiation to the epigastrium. He has had several attacks over several months occurring about once per week. However it has become progressively more severe necessitating him to ER visits in the past week. He has been given pain medication which has given him some relief but the pain persists. Hospital Course Hospital Course Hospital Course: Patient is an uninsured 39-year-old male who presented with abdominal pain and admitted for acute cholecystitis. #Acute cholecystitis ? General Surgery consulted, s/p laparoscopic cholecystectomy on 11/30/2024. Patient tolerated procedure well. ? Having bowel movements, tolerating p.o. intake. Having mild pain at incision sites without signs of infection. ? Discharged with Augmentin for 5 more days, Percocet as needed. ? Will follow-up with general surgery within 2 weeks. Exam Data for Last 24 hours Vital signs and Labs for Last 24 Hours: Temp Pulse Resp BP Pulse Ox O2 Del Method 98.1 F 57 L 16 109/67 L 97 Room Air 12/01/24 07:49 12/01/24 07:49 12/01/24 07:49 12/01/24 07:49 12/01/24 07:49 12/01/24 09:00 Laboratory Results - last 24 hr 12/01/24 05:35: WBC 12.7 H D, RBC 3.97 L, Hgb 12.2 L, Hct 35.7 L, MCV 89.9, MCH 30.7, MCHC 34.2, RDW 12.0, Plt Count 268, MPV 11.4 H, Neut % (Auto) 77.0, Lymph % (Auto) 14.1, [place] % (Auto) 8.1, Eos % (Auto) 0.3, Baso % (Auto) 0.2, Neut # (Auto) 9.7 H, Lymph # (Auto) 1.8, [facility] # (Auto) 1.0, Eos # (Auto) 0.0, Baso # (Auto) 0.0, Sodium 140, Potassium 3.5, Chloride 110 H, Carbon Dioxide 23, Anion Gap 10.5, BUN 6 L D, Creatinine 0.70, Estimated Creat Clear 144, Estimated GFR 126, Est GFR ( Amer) 152, Glucose 125 H D, Calcium 8.7, Total Bilirubin 0.5, AST 48, ALT 67, Alkaline Phosphatase 63, Total Protein 6.1 L, Albumin 3.8, Globulin 2.3, Albumin/Globulin Ratio 1.7 I & O for Last 24 hours: Intake & Output 11/28/24 11/29/24 11/30/24 12/01/24 23:59 23:59 23:59 23:59 Intake Total 360 / 360 1620 / 1740 360 / 360 Output Total 0 / 0 0 / 0 0 / 0 Balance 360 / 360 1620 / 1740 360 / 360 Weight 68.266 kg 69.944 kg 69.944 kg 71.724 kg Constitutional Constitutional: no acute distress *Routine HEENT Exam Head: Present normocephalic Eye: Present EOMI and PERRL ENT: Present mucous membranes moist *Routine Neck Exam Neck: Present supple; Absent lymphadenopathy *Routine Respiratory Exam Respiratory: Absent respiratory distress *Routine Cardiovascular Exam Cardiovascular: Absent tachycardia *Routine Abdominal Exam Abdominal: Present soft, normoactive bowel sounds and tenderness Comments: Dressings intact. No erythema. *Routine Extremities Exam Extremities: Absent cyanosis, clubbing or edema *Routine Skin Exam Skin: Present warm; Absent rash *Routine Neurological Exam Neurological: Present alert and oriented X3 Results Data Completed and Pending Labs on day of discharge: Labs from last 24 hours 12/01/24 05:35 WBC 12.7 H D RBC 3.97 L Hgb 12.2 L Hct 35.7 L MCV 89.9 MCH 30.7 MCHC 34.2 RDW 12.0 Plt Count 268 MPV 11.4 H Neut % (Auto) 77.0 Lymph % (Auto) 14.1 [facility] % (Auto) 8.1 Eos % (Auto) 0.3 Baso % (Auto) 0.2 Neut # (Auto) 9.7 H Lymph # (Auto) 1.8 [facility] [facility] # (Auto) 1.0 Eos # (Auto) 0.0 Baso # (Auto) 0.0 Sodium 140 Potassium 3.5 Chloride 110 H Carbon Dioxide 23 Anion Gap 10.5 BUN 6 L D Creatinine 0.70 Estimated Creat Clear 144 Estimated GFR 126 Est GFR ( Amer) 152 Glucose 125 H D Calcium 8.7 Total Bilirubin 0.5 AST 48 ALT 67 Alkaline Phosphatase 63 Total Protein 6.1 L Albumin 3.8 Globulin 2.3 Albumin/Globulin Ratio 1.7 DS: Diagnosis Discharge Diagnosis (1) Acute cholecystitis due to biliary calculus: Status: Acute Code(s): K80.00 - Calculus of gallbladder with acute cholecystitis without obstruction Meds Home Medications and Allergies Home Medications ?Medication ?Instructions ?Recorded ?Confirmed ?Type omeprazole 40 mg capsule,delayed 40 mg PO BID #30 caps 11/22/24 11/28/24 Rx release amoxicillin 500 mg-potassium 1 tab PO BID 5 days #10 tabs 12/01/24 Rx clavulanate 125 mg tablet (Augmentin) oxycodone-acetaminophen 5 mg-325 1 tab PO Q4HP PRN pain 3 days #18 12/01/24 Rx mg tablet (Percocet) tabs New Prescriptions to Start Prescriptions: amoxicillin-pot clavulanate [Augmentin] Martínez Reeves oxycodone-acetaminophen [Percocet] Martínez Reeves Allergies Allergy/AdvReac Type Severity Reaction Status Date / Time No Known Allergies Allergy Unverified 11/24/24 09:00 Discharge Plan Disposition Patient Disposition: Home, Self-Care Condition: Fair Follow up Plan Follow up with: Beny Benavides MD [Staff Physician] - Enter time for follow up (Please call office to establish new patient care.) Js Greenwood MD [Staff Physician] - 12/07/24 10:15 am Prescriptions/Medication Reconciliation: New amoxicillin-pot clavulanate [Augmentin] 500-125 mg tablet 1 tab PO BID 5 Days Qty: 10 0RF oxycodone-acetaminophen [Percocet] 5-325 mg tablet 1 tab PO Q4HP PRN (Reason: pain) 3 Days Qty: 18 0RF Continued omeprazole 40 mg capsule,delayed release(DR/EC) 40 mg PO BID Qty: 30 0RF Problem Reconciliation Problems Reviewed?: Yes Patient Discharge Instructions Stand Alone Forms: Post-Op Work/School Release Patient Instructions: DI for General Gallbladder Conditions, DI for Surgical Site Infection, DI for Laparoscopic Cholecystectomy Print Language: Cambodian Providers Primary Care Provider: Provider,Referral Admit Provider: Krishna Gamboa Attending Provider: Krishna Gamboa
--- NOTE | 2024-12-02 11:55 | SW/DCPLANNER ---
Spoke with patient on the phone. Patient stated that he is doing good since his surgery. Patient stated that he is aware of his upcoming appointments. Patient stated that his new medicine was brought to his bedside before being discharged. Patient stated that he has no concerns or questions at this time. Fatou Daily
== END 2024-12-01 12:45 | disposition home or self-care (01) ==
LOC: ER 20:16 → 2ND 20:22
PROVIDERS: Nurse Practitioner Family; Physician Assistant; Student in an Organized Health Care Education/Training Program; Surgery; Admitting Provider Internal Medicine Adolescent Medicine; Emergency Provider Emergency Medicine; Visit Provider Internal Medicine Adolescent Medicine
PROC: 0FT44ZZ Resection of Gallbladder, Percutaneous Endoscopic Approach (ICD-10-PCS; CPT 47563; principal; 2024-11-30 12:00)
DX: K80.00 Calculus of gallbladder with acute cholecystitis without obstruction (principal)
CPT/HCPCS: 47562; 36415; 76705; 80053; 83605; 83690; 83735; 84145; 85025; 88304; 96374; 99285; G0378; J0131; J1100; J1171; J1200; J1596; J1650; J1885; J2250; J2405; J2543; J2710; J3010; J7030; S0028

== ENCOUNTER 2024-12-07 10:42 | Emergency (ER) | payer SELFPAY ==
[2024-12-07 10:50] VITALS: BP 129/90; PULSE 61; O2SAT 98
[2024-12-07 10:52] VITALS: BP 129/90; PULSE 68; RESP 18; TEMP 36.6; O2SAT 99; BMI 21.2
[2024-12-07 11:00] LABS: Coronavirus 19, PCR Not Detected (NotDetected); Influenza A, PCR Not Detected (NotDetected); Influenza B, PCR Not Detected (NotDetected)
[2024-12-07 11:30] VITALS: BP 114/83; PULSE 66; O2SAT 98
[2024-12-07] MEDS: ACETAMINOPHEN 500MG TAB 1000 MG PO (11:30)
[2024-12-07] MEDS: LIDOCAINE 5% TRANSDERMAL PATCH 1 EACH TD (11:31)
[2024-12-07] MEDS: METHOCARBAMOL 500MG TABLET 500 MG PO (11:31)
[2024-12-07 11:34] LABS: Basophils % 0.5 % (0.1-2.0); Eosinophils # 0.6 K/mm3 (0.0-0.4); Eosinophils % 9.4 % (0.1-12.0); Hematocrit 44.9 % (42.0-52.0); Hemoglobin 15.4 g/dL (14.1-18.0); Lymphocytes # 1.5 K/mm3 (0.7-4.5); Lymphocytes % 22.3 % (10-50); Mean Corpuscular HGB Conc 34.3 g/dL (31.8-35.4); Mean Corpuscular Hemoglobin 30.7 pg (27.0-31.2); Mean Corpuscular Volume 89.6 fl (80-94); Mean Platelet Volume 10.5 fl (7.4-10.4); Monocytes # 0.6 K/mm3 (0.1-1.0); Monocytes % 8.6 % (1.7-9.3); Neutrophils # 3.9 K/mm3 (1.8-7.8); Neutrophils % 58.7 % (37.0-80.0); Platelet Count 312 K/mm3 (142-424); Red Blood Count 5.01 M/mm3 (4.60-6.20); Red Cell Distribution Width 12.4 % (11.5-17.5); White Blood Count 6.6 K/mm3 (4.8-10.8)
[2024-12-07 11:40] LABS: Albumin Level 5.4 g/dl (3.5-5.0); Chloride 102 mmol/L (98-107); Potassium 4.3 mmoL/L (3.5-5.1); Sodium 141 mmol/L (136-145)
--- NOTE | 2024-12-07 11:41 | HMH.EDGENADL ---
Discharge Plan Disposition Patient Disposition: Home, Self-Care Prescriptions Prescriptions: New lidocaine [Lidoderm] 5 % adhesive patch,medicated 1 patch topical DAILY Qty: 7 0RF Rx Instructions: leave on most painful area for up to 12 hrs Referrals Follow up/Referrals: Provider,Referral, MD [Primary Care Provider] - See instructions Activity Restrictions/Add. Instructions Additional Instructions/Restrictions: Today your evaluated in the emergency department and your lab work was overall unremarkable. You were given a prescription for Lidoderm patches for your neck pain. Please follow-up with your PCP within 5 to 7 days. Please return to the ED for any worsening of your condition. Clinical Impressions Clinical Impression: Neck pain Headache Qualifiers: Headache type: unspecified Headache chronicity pattern: acute headache Intractability: not intractable Qualified Code(s): R51.9 - Headache, unspecified Instructions Patient Instructions: DI for Neck Pain Print Language Print Language: Swedish Discharge ED Provider: Matthew Solares General Adult HPI <Ladan Turk APRN - Last Filed: 12/07/24 13:07> General Chief complaint: Recheck/Abnormal Lab/Rx Stated complaint: high b/p, dizziness Time Seen by Provider: 12/07/24 10:46 Mode of Arrival: Wheelchair Source of Information: Patient Description of Symptoms (Recalled from ER Triage Doc. by RN): PT AT GENERAL SURGERY FOLLOW-UP APPT FOR CHOLECYSTECTOMY ON 11/30/2024. PT SENT FROM OFFICE FOR HIGH BLOOD PRESSURE AND DIZZINESS. PT REPORTS HEAD AND NECK PAIN History of Present Illness HPI narrative: patient is a healthy 39-year-old male with no significant PMHx who presents to the ED with complaints of headache, mild neck pain and dizziness. He was at his postop appointment prior to arrival when he was sent to the ED for hypertension Related Data Previous Rx's ?Medication ?Instructions ?Recorded lidocaine 5 % topical patch 1 patch topical DAILY #7 ea 12/07/24 (Lidoderm) Allergies Allergy/AdvReac Type Severity Reaction Status Date / Time No Known Allergies Allergy Unverified 12/07/24 10:26 PFSH <Ladan Turk APRN - Last Filed: 12/07/24 13:07> PFS Disclaimer: The information contained in this section may have been updated after the patient was seen, as this information can be updated by other users. Medical History (Updated 12/07/24 @ 12:27 by Ladan Turk APRN) Abdominal pain, epigastric No significant past medical history Surgical History (Updated 12/07/24 @ 10:30 by TUSHAR Soria) History of laparoscopic cholecystectomy No significant past surgical history Social History Smoking Status: Never smoker alcohol intake: never substance use type: denies use current occupational status: employed Travel in the last 8 weeks: None Have you lived/traveled outside [place] in past 30 days?: No Contact w/someone who lives/traveled outside US past 30 days?: No Exposure to someone with infectious disease in past 14 days?: No Do you have a fever (greater than 100.4 F or 38 C)?: No Have you tested positive for COVID-19: No Exposed to someone with COVID-19 in past 14 days?: No Do you have a sore throat?: No Do you have a cough?: No Do you have any weakness?: No Do you have any diarrhea?: No Are you experiencing any unusual bleeding?: No Do you have any muscle aches/pain?: No Do you have any abdominal pain?: No Are you experiencing loss of taste or smell?: No Other Medical History Have you received the Flu Vaccine for this season: No Have you received the Pneumonia Vaccine: No <Ladan Turk APRN - Last Filed: 12/07/24 13:07> ROS Obtained: Yes Systems reviewed as appropriate & no additional complaints except as documented Physical Exam <Ladan Turk APRN - Last Filed: 12/07/24 13:07> General General appearance: alert and in no apparent distress Head Head exam: atraumatic and normocephalic Eye Eye exam: Present normal appearance, PERRL and EOMI; Absent jaundice or nystagmus ENT ENT exam: Present normal exam Neck Neck exam: Present normal inspection Chest Chest inspection: Present normal inspection and symmetric chest wall rise; Absent tenderness Respiratory Respiratory exam: Present normal lung sounds bilaterally Cardiovascular Cardiovascular exam: Present regular rate Abdominal Exam Abdominal exam: Present soft and normal bowel sounds; Absent tenderness Extremities Exam Extremities exam: Present normal inspection and full ROM Back Exam Back exam: Present normal inspection and full ROM Neurological Exam Neurological exam: Present alert and oriented X3 Psychiatric Psychiatric exam: Present normal affect and normal mood Skin Skin exam: Present warm and dry Medical Decision Making <Ladan Turk APRN - Last Filed: 12/07/24 13:07> Medical Records Screening: Per USPSTF and CDC recommendations, given the prevalence of disease in our region, it is our hospital?s policy to screen for HIV and viral Hepatitis for all patients aged 18 and over and those with ongoing risk factors. [place] Inquiry Pt receiving controlled substance: No Vital Signs: 12/07/24 10:50 12/07/24 10:52 12/07/24 11:30 Temperature 97.9 F Temperature Source Oral Pulse Rate 61 66 Pulse Rate [Radial] 68 Respiratory Rate 18 Blood Pressure 129/90 114/83 Blood Pressure [Right Arm] 129/90 Blood Pressure Mean [Right Arm] 103 Blood Pressure Source [Right Arm] Automatic Cuff Blood Pressure Position [Right Arm] Sitting 02 Sat by Pulse Oximetry 98 99 98 Oxygen Delivery Method Room Air Room Air 12/07/24 12:42 Temperature 98.2 F Temperature Source Pulse Rate 65 Pulse Rate [Radial] Respiratory Rate 20 Blood Pressure 114/83 Blood Pressure [Right Arm] Blood Pressure Mean [Right Arm] Blood Pressure Source [Right Arm] Blood Pressure Position [Right Arm] 02 Sat by Pulse Oximetry Oxygen Delivery Method Room Air Lab Data Lab Results 12/07/24 10:56: SARS-CoV-2 (PCR) Not detected, Influenza A Untype (PCR) Not detected, Influenza Type B (PCR) Not detected 12/07/24 11:25: WBC 6.6, RBC 5.01, Hgb 15.4, Hct 44.9, MCV 89.6, MCH 30.7, MCHC 34.3, RDW 12.4, Plt Count 312, MPV 10.5 H, Neut % (Auto) 58.7, Lymph % (Auto) 22.3, [place] % (Auto) 8.6, Eos % (Auto) 9.4, Baso % (Auto) 0.5, Neut # (Auto) 3.9, Lymph # (Auto) 1.5, [place] # (Auto) 0.6, Eos # (Auto) 0.6 H, Baso # (Auto) 0.0, Sodium 141, Potassium 4.3, Chloride 102, Carbon Dioxide 27, Anion Gap 16.3 H, BUN 12, Creatinine 0.70, Estimated Creat Clear 127, Estimated GFR 126, Est GFR ( Amer) 152, Glucose 104 H, Calcium 9.4, Total Bilirubin 1.0, AST 169 H, ALT 220 H, Alkaline Phosphatase 116, Total Protein 8.8 H D, Albumin 5.4 H, Globulin 3.4 H, Albumin/Globulin Ratio 1.6 12/07/24 12:08: Urine Color Yellow, Urine Appearance Clear, Urine pH 5.5, Ur Specific [place] >= 1.030, Urine Protein Negative, Urine Glucose (UA) Negative, Urine Ketones Negative, Urine Blood Negative, Urine Nitrate Negative, Urine Bilirubin Negative, Urine Urobilinogen 0.2, Ur Leukocyte Esterase Negative, Urine RBC None, Urine WBC 3-5, Urine Bacteria 1+ 12/07/24 11:25 12/07/24 11:25 Orders (Tests/Meds): ED MEDICATIONS Discontinued Medications Generic Name Dose Route Start Last Admin Trade Name Freq PRN Reason Stop Dose Admin Acetaminophen 1,000 mg 12/07/24 10:50 12/07/24 11:30 Acetaminophen 500mg Tab PO 12/07/24 10:51 1,000 mg ONCE ONE Administration Ketorolac Tromethamine 15 mg 12/07/24 11:56 12/07/24 12:02 Ketorolac 30mg/Ml Vial IM 12/07/24 11:57 15 mg ONCE ONE Administration Lidocaine 1 each 12/07/24 10:50 12/07/24 11:31 Lidocaine 5% Transdermal Patch TD 12/07/24 10:51 1 each ONCE ONE Administration Methocarbamol 500 mg 12/07/24 11:00 12/07/24 11:31 Methocarbamol 500mg Tablet PO 01/06/25 10:59 500 mg BID MELE Administration Sodium Chloride 10 ml 12/07/24 10:50 Sodium Chloride 0.9% 10ml Flush Syringe IV 01/06/25 10:49 NEEDED PRN Maintain IV Site ORDERS Category Date Time Status CBC w/Auto Diff [Complete Blood Count Auto Diff] Stat Lab 12/07/24 11:25 Completed CMP [Comprehensive Metabolic Panel] Stat Lab 12/07/24 11:25 Completed Rapid PCR Covid and Flu A/B Stat Lab 12/07/24 10:56 Completed Urinalysis and Microscopic Stat Lab 12/07/24 12:08 Completed Medical Decision Narrative: In summary, patient is a healthy 39-year-old male with no significant PMHx who presents to the ED with complaints of headache, mild neck pain and dizziness. He was at his postop appointment prior to arrival when he was sent to the ED for hypertension. Patient had a cholecystectomy 7 days ago, reports he has had a dull, frontal, intermittent headache for 5 days. He states that yesterday he was sitting down when he had an episode of dizziness which resolved quickly on its own. Patient reports no obvious postop complications. Denies any abdominal pain other than tenderness around the incision sites which appear to be healing well at this time. Denies fever, chills, body aches, chest pain, shortness of breath, nausea, vomiting, back pain. Upon initial evaluation patient is alert, oriented and cooperative. He is hemodynamically stable. Incisions appear to be healing well. Neuroexam intact. No nystagmus. PERRLA. Mild posterior cervical trapezius tenderness. Differential diagnosis include infectious process, postop headache, anesthesia related complications, abnormal labs, electrolyte imbalance, dehydration, musculoskeletal neck pain, headache. I discussed with patient that we will proceed with lab work and symptomatically managed with Robaxin, Lidoderm patch and acetaminophen. CBC unremarkable for leukocytosis, stable H&H. CMP remarkable for elevated AST 169, ALT 220 which is most likely transient postoperative changes. Upon reassessment, patient states that his pain has improved. He no longer has neck pain and headache has almost completely resolved. I discussed with patient that his neck pain is most likely due to positioning in OR. It is unlikely that symptoms are related to anesthesia administration. Given this, I feel the patient is safe to be discharged at this time. He has not had any episodes of significant hypertension while in the ED. No concerning neurological signs or red flags. I discussed with the patient that he will need to follow-up with his PCP within 5 to 7 days. I sent a prescription for the Lidoderm patches and instructed him to return to the ED for any worsening of condition. Patient and spouse verbalized an understanding of all discharge instructions and follow-up needs. <Matthew Solares MD - Last Filed: 12/07/24 13:53> Vital Signs: 12/07/24 10:50 12/07/24 10:52 12/07/24 11:30 Temperature 97.9 F Temperature Source Oral Pulse Rate 61 66 Pulse Rate [Radial] 68 Respiratory Rate 18 Blood Pressure 129/90 114/83 Blood Pressure [Right Arm] 129/90 Blood Pressure Mean [Right Arm] 103 Blood Pressure Source [Right Arm] Automatic Cuff Blood Pressure Position [Right Arm] Sitting 02 Sat by Pulse Oximetry 98 99 98 Oxygen Delivery Method Room Air Room Air 12/07/24 12:42 Temperature 98.2 F Temperature Source Pulse Rate 65 Pulse Rate [Radial] Respiratory Rate 20 Blood Pressure 114/83 Blood Pressure [Right Arm] Blood Pressure Mean [Right Arm] Blood Pressure Source [Right Arm] Blood Pressure Position [Right Arm] 02 Sat by Pulse Oximetry Oxygen Delivery Method Room Air Lab Data Lab Results 12/07/24 10:56: SARS-CoV-2 (PCR) Not detected, Influenza A Untype (PCR) Not detected, Influenza Type B (PCR) Not detected 12/07/24 11:25: WBC 6.6, RBC 5.01, Hgb 15.4, Hct 44.9, MCV 89.6, MCH 30.7, MCHC 34.3, RDW 12.4, Plt Count 312, MPV 10.5 H, Neut % (Auto) 58.7, Lymph % (Auto) 22.3, [place] % (Auto) 8.6, Eos % (Auto) 9.4, Baso % (Auto) 0.5, Neut # (Auto) 3.9, Lymph # (Auto) 1.5, [place] # (Auto) 0.6, Eos # (Auto) 0.6 H, Baso # (Auto) 0.0, Sodium 141, Potassium 4.3, Chloride 102, Carbon Dioxide 27, Anion Gap 16.3 H, BUN 12, Creatinine 0.70, Estimated Creat Clear 127, Estimated GFR 126, Est GFR ( Amer) 152, Glucose 104 H, Calcium 9.4, Total Bilirubin 1.0, AST 169 H, ALT 220 H, Alkaline Phosphatase 116, Total Protein 8.8 H D, Albumin 5.4 H, Globulin 3.4 H, Albumin/Globulin Ratio 1.6 12/07/24 12:08: Urine Color Yellow, Urine Appearance Clear, Urine pH 5.5, Ur Specific [place] >= 1.030, Urine Protein Negative, Urine Glucose (UA) Negative, Urine Ketones Negative, Urine Blood Negative, Urine Nitrate Negative, Urine Bilirubin Negative, Urine Urobilinogen 0.2, Ur Leukocyte Esterase Negative, Urine RBC None, Urine WBC 3-5, Urine Bacteria 1+ Orders (Tests/Meds): ED MEDICATIONS Discontinued Medications Generic Name Dose Route Start Last Admin Trade Name Sergio PRN Reason Stop Dose Admin Acetaminophen 1,000 mg 12/07/24 10:50 12/07/24 11:30 Acetaminophen 500mg Tab PO 12/07/24 10:51 1,000 mg ONCE ONE Administration Ketorolac Tromethamine 15 mg 12/07/24 11:56 12/07/24 12:02 Ketorolac 30mg/Ml Vial IM 12/07/24 11:57 15 mg ONCE ONE Administration Lidocaine 1 each 12/07/24 10:50 12/07/24 11:31 Lidocaine 5% Transdermal Patch TD 12/07/24 10:51 1 each ONCE ONE Administration Methocarbamol 500 mg 12/07/24 11:00 12/07/24 11:31 Methocarbamol 500mg Tablet PO 01/06/25 10:59 500 mg BID MELE Administration Sodium Chloride 10 ml 12/07/24 10:50 Sodium Chloride 0.9% 10ml Flush Syringe IV 01/06/25 10:49 NEEDED PRN Maintain IV Site ORDERS Category Date Time Status CBC w/Auto Diff [Complete Blood Count Auto Diff] Stat Lab 12/07/24 11:25 Completed CMP [Comprehensive Metabolic Panel] Stat Lab 12/07/24 11:25 Completed Rapid PCR Covid and Flu A/B Stat Lab 12/07/24 10:56 Completed Urinalysis and Microscopic Stat Lab 12/07/24 12:08 Completed Medical Decision Narrative: In summary, patient is a healthy 39-year-old male with no significant PMHx who presents to the ED with complaints of headache, mild neck pain and dizziness. He was at his postop appointment prior to arrival when he was sent to the ED for hypertension. Patient had a cholecystectomy 7 days ago, reports he has had a dull, frontal, intermittent headache for 5 days. He states that yesterday he was sitting down when he had an episode of dizziness which resolved quickly on its own. Patient reports no obvious postop complications. Denies any abdominal pain other than tenderness around the incision sites which appear to be healing well at this time. Denies fever, chills, body aches, chest pain, shortness of breath, nausea, vomiting, back pain. Upon initial evaluation patient is alert, oriented and cooperative. He is hemodynamically stable. Incisions appear to be healing well. Neuroexam intact. No nystagmus. PERRLA. Mild posterior cervical trapezius tenderness. Differential diagnosis include infectious process, postop headache, anesthesia related complications, abnormal labs, electrolyte imbalance, dehydration, musculoskeletal neck pain, headache. I discussed with patient that we will proceed with lab work and symptomatically managed with Robaxin, Lidoderm patch and acetaminophen. CBC unremarkable for leukocytosis, stable H&H. CMP remarkable for elevated AST 169, ALT 220 which is most likely transient postoperative changes. Upon reassessment, patient states that his pain has improved. He no longer has neck pain and headache has almost completely resolved. I discussed with patient that his neck pain is most likely due to positioning in OR. It is unlikely that symptoms are related to anesthesia administration. Given this, I feel the patient is safe to be discharged at this time. He has not had any episodes of significant hypertension while in the ED. No concerning neurological signs or red flags. I discussed with the patient that he will need to follow-up with his PCP within 5 to 7 days. I sent a prescription for the Lidoderm patches and instructed him to return to the ED for any worsening of condition. Patient and spouse verbalized an understanding of all discharge instructions and follow-up needs. I was consulted by the [facility], and we discussed the complexity of the problems being addressed. I approved the treatment and management plan for this patient's care in the Emergency Department, thus performing a substantive portion of the medical decision making. Matthew Solares MD Critical Care <Ladan Turk APRN - Last Filed: 12/07/24 13:07> Critical Care Time Critical Care Time: No
[2024-12-07 11:43] LABS: Alanine Aminotransferase 220 U/L (12-78); Albumin/Globulin Ratio 1.6 (1.1-1.8); Alkaline Phosphatase 116 U/L (38-126); Anion Gap 16.3 mEq/L (5-15); Aspartate Amino Transferase 169 U/L (17-59); Blood Urea Nitrogen 12 mg/dl (9-20); Calcium 9.4 mg/dl (8.4-10.2); Carbon Dioxide 27 mmol/L (22.0-30.0); Creatinine Clearance Estimated 127 mL/min (50-200); Estimated Glomerular Filt Rate 126 ml/min (>60); GFR (African American) 152 ML/MIN (>60); Globulin 3.4 g/dL (1.3-3.2); Glucose 104 mg/dl (74-100); Total Protein,Serum 8.8 g/dl (6.3-8.2)
--- NOTE | 2024-12-07 11:56 | PC.NURSE ---
rounded on pt, reports neck pain improved, headache remains the same. call light within reach
[2024-12-07] MEDS: KETOROLAC 30MG/ML VIAL 15 MG IM (12:02)
[2024-12-07 12:14] LABS: Microscopic, Urine URINE MICROSCOPIC (MICROSCOPIC)
[2024-12-07 12:16] LABS: Appearance,Urine CLEAR (Clear); Bilirubin,Urine Negative (Negative); Blood, Urine Negative (Negative); Color,Urine YELLOW (Yellow); Glucose,Urine (UA) Negative (Negative); Ketones,Urine Negative (Negative); Leukocyte Esterase,Urine Negative (Negative); Nitrate,Urine Negative (Negative); PH,Urine 5.5 (5.0-8.5); Protein,Urine Negative (Negative); Specific Gravity, Urine >= 1.030 (1.005-1.030); Urobilinogen,Urine 0.2 EU/dl (0.2)
[2024-12-07 12:42] VITALS: BP 114/83; PULSE 65; RESP 20; TEMP 36.8; O2SAT 97
[2024-12-07 13:08] LABS: Bacteria,Urine 1+ /lpf
== END 2024-12-07 12:43 | disposition home or self-care (01) ==
PROVIDERS: Nurse Practitioner; Emergency Provider Emergency Medicine
DX: M54.2 Cervicalgia (principal); R51.9 Headache, unspecified
CPT/HCPCS: 80053; 81001; 85025; 87636; 96372; 99284; J1885